=== PATIENT | female | born 1970 | race Caucasian/White ===

== ENCOUNTER → 2018-06-11 | Outpatient (CLI) | payer OTHER ==
[~2018-06-11] MED LIST: ALBU90OI6; CEPH500 PO; Diflucan100 MG PO; INSULANPEN SC; Novolin R100 UNIT/M IM; PROBIOTIC1 EAC1; REGULAR INSULIN; Zofran Odt4 MG SL
== END | disposition home or self-care (01) ==
LOC: LAB SHORT 17:49 → LAB 17:49
DX: L03.115 Cellulitis of right lower limb (principal); L97.512 Non-pressure chronic ulcer of other part of right foot with fat layer exposed
CPT/HCPCS: 87070; 87147; 87205

== ENCOUNTER → 2018-08-21 | Outpatient (CLI) | payer OTHER | END | disposition home or self-care (01) | LOC: LAB 18:03 → LAB SHORT 18:03 | DX: L02.611 Cutaneous abscess of right foot (principal) | CPT/HCPCS: 87070; 87077; 87147; 87186; 87205 ==

== ENCOUNTER → 2018-09-19 | Outpatient (CLI) | payer OTHER ==
[~2018-09-19] MED LIST changes: +BASAGLAR K100 UNIT/1 SC; +LEVO-T50 MCG PO; +NOVOLOG FL100 UNIT/1 SC
[2018-09-19 18:30] LABS: BASOPHILS ABSOLUTE AUTO 0.07 K/mm3 (0.00-0.23); BASOPHILS PERCENT AUTO 1 % (0-2); EOSINOPHILS ABSOLUTE AUTO 0.28 K/mm3 (0.00-0.68); EOSINOPHILS PERCENT AUTO 3 % (0-6); Hematocrit 39.8 % (33.0-51.0); Hemoglobin 13.8 g/dL (11.5-16.0); IMMATURE GRAN ABSOLUTE AUTO 0.02 K/mm3 (0.00-0.10); IMMATURE GRAN PERCENT AUTO 0 % (0-1); LYMPHOCYTES ABSOLUTE AUTO 3.96 K/mm3 (0.84-5.20); LYMPHOCYTES PERCENT AUTO 45 % (21-46); MONOCYTES ABSOLUTE AUTO 0.72 K/mm3 (0.16-1.47); MONOCYTES PERCENT AUTO 8 % (4-13); Mean Corpuscular HGB 31.2 pg (26.0-34.0); Mean Corpuscular HGB Conc 34.7 g/dL (31.5-36.5); Mean Corpuscular Volume 90 fL (80-100); NEUTROPHILS ABSOLUTE AUTO 3.79 K/mm3 (1.96-9.15); NEUTROPHILS PERCENT AUTO 43 % (41-73); Platelet Count 160 K/mm3 (150-400); RDW Coefficient Variation 11.9 % (11.7-14.2); RDW Standard Deviation 39.3 fL (35.1-46.3); Red Blood Cell Count 4.42 M/mm3 (3.80-5.20); White Blood Cell Count 8.84 K/mm3 (4.00-11.30)
== END | disposition home or self-care (01) ==
LOC: LAB EV 17:52 → LAB SHORT 17:52 → LAB 17:52
PROVIDERS: Podiatrist
DX: L03.115 Cellulitis of right lower limb (principal); E11.621 Type 2 diabetes mellitus with foot ulcer
CPT/HCPCS: 36415; 85025; 85651; 87071; 87075; 87147; 87205

== ENCOUNTER 2018-09-20 12:06 | Day surgery (SDC) | payer OTHER ==
[~2018-09-20 12:06] MED LIST changes: -BASAGLAR K100 UNIT/1 SC; -LEVO-T50 MCG PO; -NOVOLOG FL100 UNIT/1 SC
[2018-09-20 16:34] LABS: BASOPHILS ABSOLUTE AUTO 0.08 K/mm3 (0.00-0.23); BASOPHILS PERCENT AUTO 1 % (0-2); EOSINOPHILS ABSOLUTE AUTO 0.16 K/mm3 (0.00-0.68); EOSINOPHILS PERCENT AUTO 2 % (0-6); Hematocrit 41.4 % (33.0-51.0); Hemoglobin 13.9 g/dL (11.5-16.0); IMMATURE GRAN ABSOLUTE AUTO 0.03 K/mm3 (0.00-0.10); IMMATURE GRAN PERCENT AUTO 0 % (0-1); LYMPHOCYTES ABSOLUTE AUTO 3.41 K/mm3 (0.84-5.20); LYMPHOCYTES PERCENT AUTO 34 % (21-46); MONOCYTES PERCENT AUTO 10 % (4-13); Mean Corpuscular HGB 31.1 pg (26.0-34.0); Mean Corpuscular HGB Conc 33.6 g/dL (31.5-36.5); NEUTROPHILS PERCENT AUTO 54 % (41-73); Platelet Count 179 K/mm3 (150-400); RDW Coefficient Variation 11.9 % (11.7-14.2); RDW Standard Deviation 40.5 fL (35.1-46.3); Red Blood Cell Count 4.47 M/mm3 (3.80-5.20); White Blood Cell Count 10.08 K/mm3 (4.00-11.30)
[2018-09-20 16:38] LABS: Mean Corpuscular Volume 93 fL (80-100)
[2018-09-20 16:54] LABS: Cholesterol 146 mg/dL (50-200); HDL Cholesterol 74 mg/dL (>39); LDL/HDL RATIO 0.7; Low Density Lipoprotein Chol 54 mg/dL (0-110); Triglycerides 89 mg/dL (30-160); Very Low Density Lipoprot Chol 17 mg/dL (6-32)
[2018-09-20 16:57] LABS: Alanine Aminotransfer (ALT/SGP 93 U/L (12-78); Albumin, Blood 3.2 g/dL (3.4-5.0); Albumin/Globulin Ratio 0.7 (0.8-1.8); Alk Phos 154 U/L (50-136); Anion Gap 8 mmol/L (6-16); Aspartate Aminotrans (AST/SGOT 90 U/L (12-37); Bilirubin, Total 0.8 mg/dL (0.1-1.0); Blood Urea Nitrogen 12 mg/dL (8-24); Bun/Creatinine Ratio 17.8 (12.0-20.0); CO2, Blood 27 mmol/L (21-32); Calcium, Blood 8.9 mg/dL (8.5-10.1); Chloride, Blood 102 mmol/L (98-108); Creatinine, Blood 0.67 mg/dL (0.40-1.00); Globulin, Blood 4.7 g/dL (2.2-4.0); Glomerular Filtration Rate >60 (60-); Glucose, Blood 189 mg/dL (70-99); Potassium, Blood 3.8 mmol/L (3.5-5.5); Sodium, Blood 137 mmol/L (136-145); Total Protein, Blood 7.9 g/dL (6.4-8.2)
[2018-09-20] MEDS ORDERED: NOVOLOG FL100 UNIT/1 SC (18:28)
[2018-09-20] MEDS ORDERED: BASAGLAR K100 UNIT/1 SC (18:32)
[2018-09-20] MEDS ORDERED: LEVO-T50 MCG PO (18:33)
== END 2018-09-20 16:00 | disposition home or self-care (01) ==
LOC: ATC 12:06
PROVIDERS: Family Medicine
DX: L03.115 Cellulitis of right lower limb (principal); E11.69 Type 2 diabetes mellitus with other specified complication; M86.271 Subacute osteomyelitis, right ankle and foot; E11.621 Type 2 diabetes mellitus with foot ulcer; L97.519 Non-pressure chronic ulcer of other part of right foot with unspecified severity; L97.429 Non-pressure chronic ulcer of left heel and midfoot with unspecified severity; E11.42 Type 2 diabetes mellitus with diabetic polyneuropathy; E03.9 Hypothyroidism, unspecified; F17.210 Nicotine dependence, cigarettes, uncomplicated; Z79.899 Other long term (current) drug therapy; Z79.4 Long term (current) use of insulin; Z88.8 Allergy status to other drugs, medicaments and biological substances; Z91.018 Allergy to other foods
CPT/HCPCS: 80053; 80061; 84443; 85025; 96365; J0696

== ENCOUNTER 2018-09-25 00:32 | Day surgery (SDC) | payer OTHER ==
[~2018-09-25 00:32] MED LIST changes: +BASAGLAR K100 UNIT/1 SC; +LEVO-T50 MCG PO; +NOVOLOG FL100 UNIT/1 SC
== END 2018-09-25 11:45 | disposition home or self-care (01) ==
LOC: ATC 00:32
DX: L03.115 Cellulitis of right lower limb (principal); E11.69 Type 2 diabetes mellitus with other specified complication; M86.271 Subacute osteomyelitis, right ankle and foot; E11.621 Type 2 diabetes mellitus with foot ulcer; L97.519 Non-pressure chronic ulcer of other part of right foot with unspecified severity; L97.429 Non-pressure chronic ulcer of left heel and midfoot with unspecified severity; E11.42 Type 2 diabetes mellitus with diabetic polyneuropathy; E03.9 Hypothyroidism, unspecified; F17.210 Nicotine dependence, cigarettes, uncomplicated; Z79.899 Other long term (current) drug therapy; Z79.4 Long term (current) use of insulin; Z88.8 Allergy status to other drugs, medicaments and biological substances; Z91.018 Allergy to other foods
CPT/HCPCS: 96365; J0696

== ENCOUNTER 2018-10-31 17:42 | Emergency (ER) | payer OTHER ==
[~2018-10-31] VITALS: Ht 160 cm; Wt 77.1 kg
[~2018-10-31 17:42] MED LIST changes: +AMOX875 PO
== END 2018-10-31 19:35 | disposition left against medical advice (07) ==
LOC: ER 17:42
DX: Z53.21 Procedure and treatment not carried out due to patient leaving prior to being seen by health care provider (principal)

== ENCOUNTER 2018-11-03 14:35 | Day surgery (SDC) | payer OTHER | END 2018-11-03 15:14 | disposition home or self-care (01) | LOC: ATC 14:35 | DX: E11.621 Type 2 diabetes mellitus with foot ulcer (principal); E11.622 Type 2 diabetes mellitus with other skin ulcer; L97.422 Non-pressure chronic ulcer of left heel and midfoot with fat layer exposed; L97.512 Non-pressure chronic ulcer of other part of right foot with fat layer exposed; L03.115 Cellulitis of right lower limb; E11.42 Type 2 diabetes mellitus with diabetic polyneuropathy; E03.9 Hypothyroidism, unspecified; F17.210 Nicotine dependence, cigarettes, uncomplicated; Z79.899 Other long term (current) drug therapy; Z79.4 Long term (current) use of insulin; Z88.8 Allergy status to other drugs, medicaments and biological substances; Z91.018 Allergy to other foods | CPT/HCPCS: 96365; J0878 ==

== ENCOUNTER 2018-11-04 14:34 | Day surgery (SDC) | payer OTHER | END 2018-11-04 15:12 | disposition home or self-care (01) | LOC: ATC 14:34 | DX: E11.621 Type 2 diabetes mellitus with foot ulcer (principal); L97.422 Non-pressure chronic ulcer of left heel and midfoot with fat layer exposed; L97.512 Non-pressure chronic ulcer of other part of right foot with fat layer exposed; L03.115 Cellulitis of right lower limb; E11.42 Type 2 diabetes mellitus with diabetic polyneuropathy; F17.210 Nicotine dependence, cigarettes, uncomplicated; Z88.8 Allergy status to other drugs, medicaments and biological substances; Z91.040 Latex allergy status | CPT/HCPCS: 96365; J0878 ==

== ENCOUNTER 2018-11-15 15:20 | Observation (INO) | payer OTHER ==
[~2018-11-15] VITALS: Ht 160 cm; Wt 73.0 kg
[2018-11-15 16:35] LABS: BASOPHILS ABSOLUTE AUTO 0.08 K/mm3 (0.00-0.23); BASOPHILS PERCENT AUTO 1 % (0-2); EOSINOPHILS ABSOLUTE AUTO 0.14 K/mm3 (0.00-0.68); EOSINOPHILS PERCENT AUTO 1 % (0-6); Hematocrit 37.4 % (33.0-51.0); Hemoglobin 13.1 g/dL (11.5-16.0); IMMATURE GRAN ABSOLUTE AUTO 0.05 K/mm3 (0.00-0.10); IMMATURE GRAN PERCENT AUTO 0 % (0-1); LYMPHOCYTES ABSOLUTE AUTO 1.87 K/mm3 (0.84-5.20); LYMPHOCYTES PERCENT AUTO 16 % (21-46); MONOCYTES ABSOLUTE AUTO 0.91 K/mm3 (0.16-1.47); MONOCYTES PERCENT AUTO 8 % (4-13); Mean Corpuscular HGB 31.7 pg (26.0-34.0); Mean Corpuscular Volume 91 fL (80-100); Mean Platelet Volume 10.9 fL (9.1-12.4); NEUTROPHILS ABSOLUTE AUTO 8.65 K/mm3 (1.96-9.15); NEUTROPHILS PERCENT AUTO 74 % (41-73); Platelet Count 192 K/mm3 (150-400); RDW Coefficient Variation 11.9 % (11.7-14.2); RDW Standard Deviation 39.3 fL (35.1-46.3); Red Blood Cell Count 4.13 M/mm3 (3.80-5.20)
[2018-11-15 17:00] LABS: Alanine Aminotransfer (ALT/SGP 86 U/L (12-78); Albumin, Blood 3.3 g/dL (3.4-5.0); Albumin/Globulin Ratio 0.7 (0.8-1.8); Alk Phos 142 U/L (50-136); Anion Gap 7 mmol/L (6-16); Aspartate Aminotrans (AST/SGOT 94 U/L (12-37); Bilirubin, Total 3.5 mg/dL (0.1-1.0); Blood Urea Nitrogen 18 mg/dL (8-24); Bun/Creatinine Ratio 20.2 (12.0-20.0); CO2, Blood 27 mmol/L (21-32); Calcium, Blood 9.5 mg/dL (8.5-10.1); Chloride, Blood 97 mmol/L (98-108); Creatinine, Blood 0.89 mg/dL (0.40-1.00); Glomerular Filtration Rate >60 (60-); Glucose, Blood 175 mg/dL (70-99); Potassium, Blood 4.1 mmol/L (3.5-5.5); Sodium, Blood 131 mmol/L (136-145); Total Protein, Blood 8.3 g/dL (6.4-8.2)
[2018-11-15] MEDS ORDERED: LEVSOD50 PO (21:41)
--- NOTE | 2018-11-15 23:55 | NUR ---
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 PT HAS FAILED OUTPT TREATMENT. PT CURRENTLY WITH 2 DM ULCERS ON ELVIA FEET. BASE OF RIGHT GREAT TOE AND HEEL OF LEFT FOOT. PHOTOS HAVE BEEN TAKEN. PLAN FOR OR TOMORROW FOR RIGHT GREAT TOE AMPUTATION. PT DENIES ANY SIG PAIN. ONLY C/O DIARRHEA. HAS ALREADY HAD 3 EPISODES SINCE ARRIVAL TO ROOM. PLACED CALL TO DR. LEON AND WILL COLLECT SAMPLE FOR R/O CDIFF. PT HAS BEEN ON ORAL ABX FOR PAST 2 WEEKS. BUT ALSO STATES HX OF CELIAC WITH DIARRHEA. WILL SPEAK WITH DR. LEON RE PLAN.
--- NOTE | 2018-11-16 00:29 | NUR ---
SPOKE WITH DR. LEON. STOOL SAMPLE COLLECTED AND SENT FOR R/O CDIFF. ALSO WOUND CARED DONE. BOTH ULCERS CLEANED, APPLIED HYDROGEL, COVERED WITH GAUZE AND SECURED WITH BRYANT WRAP. ELEVATED EXTREM. NO C/O CALL LIGHT IN REACH.
[2018-11-16 04:44] LABS: Alanine Aminotransfer (ALT/SGP 65 U/L (12-78); Albumin, Blood 2.5 g/dL (3.4-5.0); Albumin/Globulin Ratio 0.6 (0.8-1.8); Alk Phos 125 U/L (50-136); Anion Gap 8 mmol/L (6-16); Aspartate Aminotrans (AST/SGOT 79 U/L (12-37); Blood Urea Nitrogen 17 mg/dL (8-24); Bun/Creatinine Ratio 20.7 (12.0-20.0); CO2, Blood 24 mmol/L (21-32); Calcium, Blood 8.2 mg/dL (8.5-10.1); Chloride, Blood 101 mmol/L (98-108); Creatinine, Blood 0.82 mg/dL (0.40-1.00); Globulin, Blood 4.1 g/dL (2.2-4.0); Glomerular Filtration Rate >60 (60-); Glucose, Blood 270 mg/dL (70-99); Potassium, Blood 3.8 mmol/L (3.5-5.5); Sodium, Blood 133 mmol/L (136-145); Total Protein, Blood 6.6 g/dL (6.4-8.2)
[2018-11-16 04:57] LABS: Hematocrit 35.4 % (33.0-51.0); Hemoglobin 12.2 g/dL (11.5-16.0); Mean Corpuscular HGB 31.6 pg (26.0-34.0); Mean Corpuscular HGB Conc 34.5 g/dL (31.5-36.5); Mean Corpuscular Volume 92 fL (80-100); Mean Platelet Volume 11.1 fL (9.1-12.4); Platelet Count 156 K/mm3 (150-400); RDW Standard Deviation 40.3 fL (35.1-46.3); Red Blood Cell Count 3.86 M/mm3 (3.80-5.20); White Blood Cell Count 6.25 K/mm3 (4.00-11.30)
--- NOTE | 2018-11-16 07:00 | NUR ---
REPORT FROM NUSRAT SPEAR. ASSUMED PT CARE.
--- NOTE | 2018-11-16 07:00 | NUR ---
REPORT FROM JOY Cueto RN. ASSUMED PT CARE.
--- NOTE | 2018-11-16 07:40 | NUR ---
STAFF TO ROOM FOR VS. PT DENIES NEEDS.
--- NOTE | 2018-11-16 07:40 | NUR ---
PT SLEEPING, NADN. FAMILY AT BEDSIDE SLEEPING IN CHAIR.
--- NOTE | 2018-11-16 08:15 | NUR ---
PT RESTING. WAKES TO TOUCH AND VERBAL STIMULI. ASSESSMENT CHARTED. PT DENIES NEEDS.
--- NOTE | 2018-11-16 08:45 | NUR ---
DR SANTOYO TO ROOM FOR EVAL AND ASSESSMENT. PLAN FOR PT TO GO TO OR TODAY FOR POSS AMP TOE. WOUNDS TO BILAT FEET DRESSED LOOSELY WITH JIHANAZNory.
--- NOTE | 2018-11-16 11:19 | NUR ---
PT IN NO DISTRESS. DENIES NEEDS. WILL CONT TO MONITOR.
--- NOTE | 2018-11-16 11:50 | NUR ---
PT MEDICATED WITH INSULIN PER ORDERS. PT ON AND OFF PHONE TALKING WITH FAMILY. DENIES PAIN.
--- NOTE | 2018-11-16 12:49 | NUR ---
PT TO SURGICENTER VIA WC.
--- NOTE | 2018-11-16 13:06 | NUR ---
11/16/18 1306 Alma Delia Hill IV IN WAS ACCESSED, FLUSHED WITH 5ML OF LR AND ATTACHED TO LR SEE MED/IO SCREEN.
--- NOTE | 2018-11-16 15:25 | NUR ---
PT RETURNED TO ROOM. ALERT AND ORIENTED. PT C/O PAIN 12/12. POST OP DRESSING TO RIGHT FOOT, POST OP SHOE TO FOOT, PT TO BE NON WEIGHT BEARING.
--- NOTE | 2018-11-16 15:37 | NUR ---
PER DR ROSALES: ICE FOR 20 MIN EVERY HR WHILE AWAKE. ELEVATE EXT FOR NEXT 48HRS. KEEP DRESSING DRY AND INTACT UNTIL F/U APPT.
--- NOTE | 2018-11-16 15:40 | NUR ---
11/16/18 1540 Rupinder More LATE ENTRY: PT INTO STEP DOWN @ 1434, RECEIVED REPORT FROM DR. HOUSTON, ANESTHESIOLOGIST & MARCELLUS, RN. PT LS CLEAR TO AUSCULTATION, VSS., PT REPORTING TOLERABLE LEVEL OF PAIN AT 7/10. PT A&O. CBG, 239 POST OP. OPERITIVE SITE C/D/I. MOM AT BEDSIDE. PT TOLERATING ORAL INTAKE. ICE & ELEVATION TO OPERATIVE SITE. DENTURES RETURNED TO PT. 1530 PT TRANSFERED BACK TO SURGICAL FLOOR. REPORT GIVEN TO BEATRIS BRADFORD. ADVISED OF NWB STATUS, ICE TO OPERATIVE SITE 30/HR WHILE AWAKE X2 DAYS, KEEP DRESSING DRY/INTAKE UNTIL F/U APPT PER DR. ROSALES POST OP ORDERS. BEATRIS BRADFORD & PT STATE NO QUESTIONS OR CONCERNS AT THIS TIME.
--- NOTE | 2018-11-16 16:48 | NUR ---
FAMILY IN AND OUT OF ROOM. VSS.
--- NOTE | 2018-11-16 18:30 | NUR ---
ASSISTED PT TO RESTROOM. PT ATE REG DINNER FROM FAMILY.
[2018-11-16 22:50] LABS: Glucose, Blood 640 mg/dL (70-99)
[2018-11-17 04:37] LABS: Alanine Aminotransfer (ALT/SGP 66 U/L (12-78); Albumin, Blood 2.6 g/dL (3.4-5.0); Albumin/Globulin Ratio 0.6 (0.8-1.8); Alk Phos 158 U/L (50-136); Anion Gap 7 mmol/L (6-16); Aspartate Aminotrans (AST/SGOT 73 U/L (12-37); Bilirubin, Total 1.3 mg/dL (0.1-1.0); Blood Urea Nitrogen 17 mg/dL (8-24); Bun/Creatinine Ratio 18.8 (12.0-20.0); CO2, Blood 27 mmol/L (21-32); Calcium, Blood 8.4 mg/dL (8.5-10.1); Chloride, Blood 103 mmol/L (98-108); Globulin, Blood 4.6 g/dL (2.2-4.0); Glomerular Filtration Rate >60 (60-); Glucose, Blood 201 mg/dL (70-99); Potassium, Blood 4.5 mmol/L (3.5-5.5); Sodium, Blood 137 mmol/L (136-145); Total Protein, Blood 7.2 g/dL (6.4-8.2)
--- NOTE | 2018-11-17 07:32 | NUR ---
SUMMARY POD #1 RIGHT GREAT TOE AMPUTATION DRSG REMAINS C/D/I. CO ENC TO KEEP FOOT ELEVATED ON PILLOWS. PT ENC TO CALL FOR ASSISTANCE TO THE RESTROOM. FREQUENTLY REMINDERS OF NWB STATUS TO RIGHT FOOT. EXUDRY/BRYANT WRAP APPLIED TO ULCER ON LEFT HEEL. PAIN MEDICATED X1. GLUCOSE LEVEL OF 640 OBTAINED, HOSPITALIST WAS NOTIFIED, ADDITIONAL INSULIN WAS ORDERED AND GIVEN, GLUCOSE RECHECKED ACCORDING TO VERBAL ORDERS. PT REMAINED ASYMPTOMATIC. DIET EDUCATION PROVIDED. PT HAD BEEN EATING "KETTLE CORN" & DRINKING "SPRITE". REPORT GIVEN TO DAY RN. CALL LIGHT IN REACH
[2018-11-17] MEDS ORDERED: Bactrim Ds Tab1 EACH PO (11:41)
--- NOTE | 2018-11-17 13:50 | NUR ---
D/C'D HOME, DC INSTRUCTIONS GIVEN, VERBALIZED UNDERSTANDING, L HEEL DRESSING CHANGED, 4X4 GAUZE APPLIED, SECURED WITH BRYANT WRAP, DSG SUPPLIES SENT W/ PT.
== END 2018-11-17 13:50 | disposition home or self-care (01) ==
LOC: ER 15:20 → SURS 15:21 → ER 21:32 → SURS 21:32
PROVIDERS: Internal Medicine; Physician Assistant; Podiatrist Foot & Ankle Surgery; ADMIT Internal Medicine
PROC: 0Y6M0Z9 Detachment at Right Foot, Partial 1st Ray, Open Approach (ICD-10-PCS; principal; 2018-11-16 14:00)
DX: E11.69 Type 2 diabetes mellitus with other specified complication (principal); M86.171 Other acute osteomyelitis, right ankle and foot; E11.621 Type 2 diabetes mellitus with foot ulcer; L97.519 Non-pressure chronic ulcer of other part of right foot with unspecified severity; R79.89 Other specified abnormal findings of blood chemistry
CPT/HCPCS: 36415; 73620; 73630; 76705; 80053; 82947; 83605; 85025; 85027; 87040; 87070; 87075; 87077; 87186; 87205; 87493; 88305; 88311; 96372; 96374; 99285-25; G0378; J1100; J1650; J1885; J2250; J2405; J2704; J3010; J7030; J7120

== ENCOUNTER 2019-01-14 00:19 | Day surgery (SDC) | payer OTHER ==
[~2019-01-14 00:19] MED LIST changes: +Bactrim Ds Tab1 EACH PO; +LEVSOD50 PO
== END 2019-01-14 22:48 | disposition home or self-care (01) ==
LOC: WOUND 00:19
DX: E11.621 Type 2 diabetes mellitus with foot ulcer (principal); L97.521 Non-pressure chronic ulcer of other part of left foot limited to breakdown of skin; E03.9 Hypothyroidism, unspecified; E11.42 Type 2 diabetes mellitus with diabetic polyneuropathy
CPT/HCPCS: G0463

== ENCOUNTER → 2019-01-16 | Outpatient (CLI) | payer OTHER ==
[2019-01-18 14:07] LABS: HPV 16 Negative (Negative); HPV 18 Negative (Negative); HPV OTHER HR TYPES Negative (Negative)
== END ==
LOC: LAB 19:15 → LAB SHORT 19:15
PROVIDERS: Family Medicine
DX: Z01.419 Encounter for gynecological examination (general) (routine) without abnormal findings (principal)
CPT/HCPCS: 87624; G0123

== ENCOUNTER 2019-01-28 00:24 | Day surgery (SDC) | payer OTHER | END 2019-01-28 22:47 | disposition home or self-care (01) | LOC: WOUND 00:24 | DX: E11.621 Type 2 diabetes mellitus with foot ulcer (principal); L97.521 Non-pressure chronic ulcer of other part of left foot limited to breakdown of skin; E11.42 Type 2 diabetes mellitus with diabetic polyneuropathy; Z89.411 Acquired absence of right great toe ==

== ENCOUNTER 2019-02-21 00:44 | Day surgery (SDC) | payer OTHER | END 2019-02-21 23:07 | disposition home or self-care (01) | LOC: WOUND 00:44 | DX: E11.621 Type 2 diabetes mellitus with foot ulcer (principal); L97.521 Non-pressure chronic ulcer of other part of left foot limited to breakdown of skin; E11.42 Type 2 diabetes mellitus with diabetic polyneuropathy; Z89.431 Acquired absence of right foot | CPT/HCPCS: G0463 ==

== ENCOUNTER 2019-08-16 02:53 | Day surgery (SDC) | payer OTHER | END 2019-08-16 23:10 | disposition home or self-care (01) | LOC: WOUND 02:53 | DX: E11.621 Type 2 diabetes mellitus with foot ulcer (principal); L97.512 Non-pressure chronic ulcer of other part of right foot with fat layer exposed; E11.622 Type 2 diabetes mellitus with other skin ulcer; L97.819 Non-pressure chronic ulcer of other part of right lower leg with unspecified severity; E11.59 Type 2 diabetes mellitus with other circulatory complications; E11.42 Type 2 diabetes mellitus with diabetic polyneuropathy; E03.9 Hypothyroidism, unspecified; F42.9 Obsessive-compulsive disorder, unspecified; Z88.8 Allergy status to other drugs, medicaments and biological substances; Z91.040 Latex allergy status; Z87.891 Personal history of nicotine dependence | CPT/HCPCS: G0463 ==

== ENCOUNTER 2019-08-23 00:19 | Day surgery (SDC) | payer OTHER | END 2019-08-23 23:09 | disposition home or self-care (01) | LOC: WOUND 00:19 | DX: E11.621 Type 2 diabetes mellitus with foot ulcer (principal); E11.59 Type 2 diabetes mellitus with other circulatory complications; L97.819 Non-pressure chronic ulcer of other part of right lower leg with unspecified severity; E11.42 Type 2 diabetes mellitus with diabetic polyneuropathy; E03.9 Hypothyroidism, unspecified; Z87.891 Personal history of nicotine dependence; Z79.4 Long term (current) use of insulin | CPT/HCPCS: 87071; 87075; 87077; 87186; 87205 ==

== ENCOUNTER 2019-08-26 01:30 | Day surgery (SDC) | payer OTHER | END 2019-08-26 22:38 | disposition home or self-care (01) | LOC: WOUND 01:30 | DX: E11.621 Type 2 diabetes mellitus with foot ulcer (principal); E11.42 Type 2 diabetes mellitus with diabetic polyneuropathy; E11.59 Type 2 diabetes mellitus with other circulatory complications; L97.812 Non-pressure chronic ulcer of other part of right lower leg with fat layer exposed; E03.9 Hypothyroidism, unspecified; Z87.891 Personal history of nicotine dependence; Z79.4 Long term (current) use of insulin; Z79.899 Other long term (current) drug therapy ==

== ENCOUNTER 2019-08-30 00:37 | Day surgery (SDC) | payer OTHER | END 2019-08-30 22:40 | disposition home or self-care (01) | LOC: WOUND 00:37 | DX: S91.301D Unspecified open wound, right foot, subsequent encounter (principal); S81.801D Unspecified open wound, right lower leg, subsequent encounter ==

== ENCOUNTER 2019-09-02 00:43 | Day surgery (SDC) | payer OTHER | END 2019-09-02 22:39 | disposition home or self-care (01) | LOC: WOUND 00:43 | DX: E11.622 Type 2 diabetes mellitus with other skin ulcer (principal); E11.621 Type 2 diabetes mellitus with foot ulcer; E11.59 Type 2 diabetes mellitus with other circulatory complications; E03.9 Hypothyroidism, unspecified; E11.42 Type 2 diabetes mellitus with diabetic polyneuropathy; L97.415 Non-pressure chronic ulcer of right heel and midfoot with muscle involvement without evidence of necrosis; L97.812 Non-pressure chronic ulcer of other part of right lower leg with fat layer exposed; Z87.891 Personal history of nicotine dependence; Z79.4 Long term (current) use of insulin; Z79.899 Other long term (current) drug therapy ==

== ENCOUNTER 2019-09-09 00:14 | Day surgery (SDC) | payer OTHER | END 2019-09-09 23:08 | disposition home or self-care (01) | LOC: WOUND 00:14 | DX: E11.621 Type 2 diabetes mellitus with foot ulcer (principal); E11.622 Type 2 diabetes mellitus with other skin ulcer; L97.812 Non-pressure chronic ulcer of other part of right lower leg with fat layer exposed; L97.512 Non-pressure chronic ulcer of other part of right foot with fat layer exposed ==

== ENCOUNTER 2019-09-11 01:50 | Day surgery (SDC) | payer OTHER | END 2019-09-11 22:48 | disposition home or self-care (01) | LOC: WOUND 01:50 | DX: E11.621 Type 2 diabetes mellitus with foot ulcer (principal); L97.819 Non-pressure chronic ulcer of other part of right lower leg with unspecified severity; E11.59 Type 2 diabetes mellitus with other circulatory complications; Z79.4 Long term (current) use of insulin ==

== ENCOUNTER 2019-09-13 00:08 | Day surgery (SDC) | payer OTHER | END 2019-09-13 22:37 | disposition home or self-care (01) | LOC: WOUND 00:08 | DX: E11.621 Type 2 diabetes mellitus with foot ulcer (principal); L97.819 Non-pressure chronic ulcer of other part of right lower leg with unspecified severity; R60.9 Edema, unspecified; E11.59 Type 2 diabetes mellitus with other circulatory complications ==

== ENCOUNTER 2019-09-16 01:15 | Day surgery (SDC) | payer OTHER | END 2019-09-16 22:53 | disposition home or self-care (01) | LOC: WOUND 01:15 | DX: E11.621 Type 2 diabetes mellitus with foot ulcer (principal); E11.42 Type 2 diabetes mellitus with diabetic polyneuropathy; I87.2 Venous insufficiency (chronic) (peripheral); E11.59 Type 2 diabetes mellitus with other circulatory complications; E03.9 Hypothyroidism, unspecified; Z87.891 Personal history of nicotine dependence; L97.415 Non-pressure chronic ulcer of right heel and midfoot with muscle involvement without evidence of necrosis; Z79.4 Long term (current) use of insulin; Z79.899 Other long term (current) drug therapy ==

== ENCOUNTER 2019-09-18 00:23 | Day surgery (SDC) | payer OTHER | END 2019-09-18 22:39 | disposition home or self-care (01) | LOC: WOUND 00:23 | DX: E11.621 Type 2 diabetes mellitus with foot ulcer (principal); E11.59 Type 2 diabetes mellitus with other circulatory complications; L97.819 Non-pressure chronic ulcer of other part of right lower leg with unspecified severity; Z79.4 Long term (current) use of insulin ==

== ENCOUNTER 2019-09-20 00:10 | Day surgery (SDC) | payer OTHER | END 2019-09-20 22:59 | disposition home or self-care (01) | LOC: WOUND 00:10 | DX: E11.621 Type 2 diabetes mellitus with foot ulcer (principal); E11.59 Type 2 diabetes mellitus with other circulatory complications; L97.819 Non-pressure chronic ulcer of other part of right lower leg with unspecified severity; Z79.4 Long term (current) use of insulin ==

== ENCOUNTER 2019-09-23 00:10 | Day surgery (SDC) | payer OTHER | END 2019-09-23 22:48 | disposition home or self-care (01) | LOC: WOUND 00:10 | DX: E11.621 Type 2 diabetes mellitus with foot ulcer (principal); L97.515 Non-pressure chronic ulcer of other part of right foot with muscle involvement without evidence of necrosis; E11.622 Type 2 diabetes mellitus with other skin ulcer; L97.812 Non-pressure chronic ulcer of other part of right lower leg with fat layer exposed; E11.59 Type 2 diabetes mellitus with other circulatory complications; Z79.4 Long term (current) use of insulin; Z79.899 Other long term (current) drug therapy | CPT/HCPCS: 87081 ==

== ENCOUNTER 2019-09-24 15:27 | Day surgery (SDC) | payer OTHER | END 2019-09-24 22:51 | disposition home or self-care (01) | LOC: WOUND 15:27 | DX: E11.621 Type 2 diabetes mellitus with foot ulcer (principal); L97.519 Non-pressure chronic ulcer of other part of right foot with unspecified severity; E11.622 Type 2 diabetes mellitus with other skin ulcer; L97.819 Non-pressure chronic ulcer of other part of right lower leg with unspecified severity; E11.59 Type 2 diabetes mellitus with other circulatory complications; R60.9 Edema, unspecified ==

== ENCOUNTER 2019-09-30 00:09 | Day surgery (SDC) | payer OTHER | END 2019-09-30 22:57 | disposition home or self-care (01) | LOC: WOUND 00:09 | DX: E11.621 Type 2 diabetes mellitus with foot ulcer (principal); E11.622 Type 2 diabetes mellitus with other skin ulcer; L97.512 Non-pressure chronic ulcer of other part of right foot with fat layer exposed; L97.812 Non-pressure chronic ulcer of other part of right lower leg with fat layer exposed; E11.42 Type 2 diabetes mellitus with diabetic polyneuropathy; Z87.891 Personal history of nicotine dependence ==

== ENCOUNTER 2019-10-07 00:30 | Day surgery (SDC) | payer OTHER | END 2019-10-07 22:44 | disposition home or self-care (01) | LOC: WOUND 00:30 | DX: E11.622 Type 2 diabetes mellitus with other skin ulcer (principal); E11.59 Type 2 diabetes mellitus with other circulatory complications; L97.819 Non-pressure chronic ulcer of other part of right lower leg with unspecified severity; Z79.4 Long term (current) use of insulin ==

== ENCOUNTER 2019-10-14 00:24 | Day surgery (SDC) | payer OTHER | END 2019-10-14 22:46 | disposition home or self-care (01) | LOC: WOUND 00:24 | DX: E11.621 Type 2 diabetes mellitus with foot ulcer (principal); L97.412 Non-pressure chronic ulcer of right heel and midfoot with fat layer exposed; E11.622 Type 2 diabetes mellitus with other skin ulcer; L97.812 Non-pressure chronic ulcer of other part of right lower leg with fat layer exposed; E11.59 Type 2 diabetes mellitus with other circulatory complications ==

== ENCOUNTER 2019-10-16 10:16 | Day surgery (SDC) | payer OTHER ==
[~2019-10-16] VITALS: Ht 160 cm; Wt 93.9 kg
--- NOTE | 2019-10-16 11:20 | NUR ---
10/16/19 1120 Elvi Leon 2 IV ATTEMPT 1 RH BY ANDREW VALVE 1 IN LFA BY RN WOULD NOT THREAD 1 SUCCESSFUL IV IN LFA BY BEATRIS PT TOW
== END 2019-10-16 12:32 | disposition home or self-care (01) ==
LOC: ORSCSDS 10:16
PROVIDERS: Internal Medicine Gastroenterology
PROC: 0DB68ZX Excision of Stomach, Via Natural or Artificial Opening Endoscopic, Diagnostic (ICD-10-PCS; principal; 2019-10-16 11:30)
DX: K74.60 Unspecified cirrhosis of liver (principal); K90.0 Celiac disease; K20.9 Esophagitis, unspecified; K44.9 Diaphragmatic hernia without obstruction or gangrene; J45.909 Unspecified asthma, uncomplicated; E03.9 Hypothyroidism, unspecified; E11.9 Type 2 diabetes mellitus without complications; F17.210 Nicotine dependence, cigarettes, uncomplicated; Z79.4 Long term (current) use of insulin; E11.621 Type 2 diabetes mellitus with foot ulcer; Z79.899 Other long term (current) drug therapy
CPT/HCPCS: 82947; 88305; J2704; J7120; J7799

== ENCOUNTER 2019-10-21 00:59 | Day surgery (SDC) | payer OTHER | END 2019-10-21 22:43 | disposition home or self-care (01) | LOC: WOUND 00:59 | DX: E11.621 Type 2 diabetes mellitus with foot ulcer (principal); L97.819 Non-pressure chronic ulcer of other part of right lower leg with unspecified severity; I87.2 Venous insufficiency (chronic) (peripheral); E11.42 Type 2 diabetes mellitus with diabetic polyneuropathy; E03.9 Hypothyroidism, unspecified; E11.59 Type 2 diabetes mellitus with other circulatory complications; Z87.891 Personal history of nicotine dependence; Z79.4 Long term (current) use of insulin; Z79.899 Other long term (current) drug therapy ==

== ENCOUNTER 2019-11-04 00:30 | Day surgery (SDC) | payer OTHER | END 2019-11-04 22:57 | disposition home or self-care (01) | LOC: WOUND 00:30 | DX: E11.622 Type 2 diabetes mellitus with other skin ulcer (principal); L97.819 Non-pressure chronic ulcer of other part of right lower leg with unspecified severity; L97.821 Non-pressure chronic ulcer of other part of left lower leg limited to breakdown of skin; I87.2 Venous insufficiency (chronic) (peripheral); E11.59 Type 2 diabetes mellitus with other circulatory complications; E11.42 Type 2 diabetes mellitus with diabetic polyneuropathy; E03.9 Hypothyroidism, unspecified; Z87.891 Personal history of nicotine dependence; Z79.4 Long term (current) use of insulin; Z79.899 Other long term (current) drug therapy ==

== ENCOUNTER 2019-11-04 00:39 | Day surgery (SDC) | payer OTHER | END 2019-11-04 22:58 | disposition home or self-care (01) | LOC: HBO 00:39 | DX: E11.621 Type 2 diabetes mellitus with foot ulcer (principal); L97.819 Non-pressure chronic ulcer of other part of right lower leg with unspecified severity; I87.2 Venous insufficiency (chronic) (peripheral); E11.59 Type 2 diabetes mellitus with other circulatory complications; Z79.4 Long term (current) use of insulin | CPT/HCPCS: 82947; G0277 ==

== ENCOUNTER 2019-11-05 00:29 | Day surgery (SDC) | payer OTHER | END 2019-11-05 22:58 | disposition home or self-care (01) | LOC: HBO 00:29 | DX: E11.621 Type 2 diabetes mellitus with foot ulcer (principal); L97.819 Non-pressure chronic ulcer of other part of right lower leg with unspecified severity; L97.821 Non-pressure chronic ulcer of other part of left lower leg limited to breakdown of skin; I87.2 Venous insufficiency (chronic) (peripheral); E11.59 Type 2 diabetes mellitus with other circulatory complications; Z79.4 Long term (current) use of insulin | CPT/HCPCS: 82947; G0277 ==

== ENCOUNTER 2019-11-06 00:18 | Day surgery (SDC) | payer OTHER | END 2019-11-06 22:49 | disposition home or self-care (01) | LOC: HBO 00:18 | DX: E11.622 Type 2 diabetes mellitus with other skin ulcer (principal); L97.819 Non-pressure chronic ulcer of other part of right lower leg with unspecified severity; L97.821 Non-pressure chronic ulcer of other part of left lower leg limited to breakdown of skin; I87.2 Venous insufficiency (chronic) (peripheral); E11.59 Type 2 diabetes mellitus with other circulatory complications; Z79.4 Long term (current) use of insulin | CPT/HCPCS: 82947; G0277 ==

== ENCOUNTER 2019-11-07 00:12 | Day surgery (SDC) | payer OTHER | END 2019-11-07 23:20 | disposition home or self-care (01) | LOC: HBO 00:12 | DX: E11.621 Type 2 diabetes mellitus with foot ulcer (principal); L97.819 Non-pressure chronic ulcer of other part of right lower leg with unspecified severity; L97.821 Non-pressure chronic ulcer of other part of left lower leg limited to breakdown of skin; I87.2 Venous insufficiency (chronic) (peripheral); E11.59 Type 2 diabetes mellitus with other circulatory complications; Z79.4 Long term (current) use of insulin | CPT/HCPCS: 82947; G0277 ==

== ENCOUNTER 2019-11-08 00:41 | Day surgery (SDC) | payer OTHER | END 2019-11-08 23:23 | disposition home or self-care (01) | LOC: HBO 00:41 | DX: E11.621 Type 2 diabetes mellitus with foot ulcer (principal); L97.819 Non-pressure chronic ulcer of other part of right lower leg with unspecified severity; L97.821 Non-pressure chronic ulcer of other part of left lower leg limited to breakdown of skin; I87.2 Venous insufficiency (chronic) (peripheral); E11.59 Type 2 diabetes mellitus with other circulatory complications | CPT/HCPCS: 82947; G0277 ==

== ENCOUNTER 2019-11-08 11:41 | Day surgery (SDC) | payer OTHER | END 2019-11-08 23:24 | disposition home or self-care (01) | LOC: WOUND 11:41 | DX: E11.621 Type 2 diabetes mellitus with foot ulcer (principal); L97.519 Non-pressure chronic ulcer of other part of right foot with unspecified severity; E11.622 Type 2 diabetes mellitus with other skin ulcer; L97.919 Non-pressure chronic ulcer of unspecified part of right lower leg with unspecified severity; L97.929 Non-pressure chronic ulcer of unspecified part of left lower leg with unspecified severity ==

== ENCOUNTER 2019-11-11 00:38 | Day surgery (SDC) | payer OTHER | END 2019-11-11 23:12 | disposition home or self-care (01) | LOC: HBO 00:38 | DX: E11.621 Type 2 diabetes mellitus with foot ulcer (principal); L97.819 Non-pressure chronic ulcer of other part of right lower leg with unspecified severity; L97.821 Non-pressure chronic ulcer of other part of left lower leg limited to breakdown of skin; I87.2 Venous insufficiency (chronic) (peripheral); E11.59 Type 2 diabetes mellitus with other circulatory complications | CPT/HCPCS: 82947; G0277 ==

== ENCOUNTER 2019-11-11 00:40 | Day surgery (SDC) | payer OTHER | END 2019-11-11 23:12 | disposition home or self-care (01) | LOC: WOUND 00:40 | DX: E11.621 Type 2 diabetes mellitus with foot ulcer (principal); L97.819 Non-pressure chronic ulcer of other part of right lower leg with unspecified severity; L97.821 Non-pressure chronic ulcer of other part of left lower leg limited to breakdown of skin; I87.2 Venous insufficiency (chronic) (peripheral); E11.59 Type 2 diabetes mellitus with other circulatory complications; E03.9 Hypothyroidism, unspecified; Z87.891 Personal history of nicotine dependence; E11.42 Type 2 diabetes mellitus with diabetic polyneuropathy | CPT/HCPCS: 82947 ==

== ENCOUNTER 2019-11-12 00:11 | Day surgery (SDC) | payer OTHER | END 2019-11-12 23:03 | disposition home or self-care (01) | LOC: HBO 00:11 | DX: E11.621 Type 2 diabetes mellitus with foot ulcer (principal); L97.819 Non-pressure chronic ulcer of other part of right lower leg with unspecified severity; L97.821 Non-pressure chronic ulcer of other part of left lower leg limited to breakdown of skin; E11.59 Type 2 diabetes mellitus with other circulatory complications; I87.2 Venous insufficiency (chronic) (peripheral) | CPT/HCPCS: 82947; G0277 ==

== ENCOUNTER 2019-11-13 00:36 | Day surgery (SDC) | payer OTHER | END 2019-11-13 23:14 | disposition home or self-care (01) | LOC: HBO 00:36 | DX: E11.621 Type 2 diabetes mellitus with foot ulcer (principal); L97.819 Non-pressure chronic ulcer of other part of right lower leg with unspecified severity; L97.821 Non-pressure chronic ulcer of other part of left lower leg limited to breakdown of skin; I87.2 Venous insufficiency (chronic) (peripheral); E11.59 Type 2 diabetes mellitus with other circulatory complications | CPT/HCPCS: 82947; G0277 ==

== ENCOUNTER 2019-11-14 00:25 | Day surgery (SDC) | payer OTHER | END 2019-11-14 22:39 | disposition home or self-care (01) | LOC: HBO 00:25 | DX: E11.621 Type 2 diabetes mellitus with foot ulcer (principal); L97.819 Non-pressure chronic ulcer of other part of right lower leg with unspecified severity; L97.821 Non-pressure chronic ulcer of other part of left lower leg limited to breakdown of skin; I87.2 Venous insufficiency (chronic) (peripheral); E11.59 Type 2 diabetes mellitus with other circulatory complications; Z79.4 Long term (current) use of insulin | CPT/HCPCS: 82947; G0277 ==

== ENCOUNTER 2019-11-14 10:10 | Day surgery (SDC) | payer OTHER | END 2019-11-14 22:39 | disposition home or self-care (01) | LOC: WOUND 10:10 | DX: E11.621 Type 2 diabetes mellitus with foot ulcer (principal); L97.819 Non-pressure chronic ulcer of other part of right lower leg with unspecified severity; L97.821 Non-pressure chronic ulcer of other part of left lower leg limited to breakdown of skin; I87.2 Venous insufficiency (chronic) (peripheral); E11.59 Type 2 diabetes mellitus with other circulatory complications ==

== ENCOUNTER 2019-11-15 00:34 | Day surgery (SDC) | payer OTHER | END 2019-11-15 23:44 | disposition home or self-care (01) | LOC: HBO 00:34 | DX: E11.621 Type 2 diabetes mellitus with foot ulcer (principal); L97.819 Non-pressure chronic ulcer of other part of right lower leg with unspecified severity; L97.821 Non-pressure chronic ulcer of other part of left lower leg limited to breakdown of skin; I87.2 Venous insufficiency (chronic) (peripheral); E11.59 Type 2 diabetes mellitus with other circulatory complications; Z79.4 Long term (current) use of insulin | CPT/HCPCS: 82947; G0277 ==

== ENCOUNTER 2019-11-18 00:16 | Day surgery (SDC) | payer OTHER | END 2019-11-18 22:39 | disposition home or self-care (01) | LOC: WOUND 00:16 | DX: E11.621 Type 2 diabetes mellitus with foot ulcer (principal); I87.2 Venous insufficiency (chronic) (peripheral); E11.59 Type 2 diabetes mellitus with other circulatory complications; E11.42 Type 2 diabetes mellitus with diabetic polyneuropathy; L97.419 Non-pressure chronic ulcer of right heel and midfoot with unspecified severity; Z79.4 Long term (current) use of insulin; Z87.891 Personal history of nicotine dependence; Z79.899 Other long term (current) drug therapy ==

== ENCOUNTER 2019-11-18 00:25 | Day surgery (SDC) | payer OTHER | END 2019-11-18 22:39 | disposition home or self-care (01) | LOC: HBO 00:25 | DX: E11.621 Type 2 diabetes mellitus with foot ulcer (principal); I87.2 Venous insufficiency (chronic) (peripheral); E11.59 Type 2 diabetes mellitus with other circulatory complications; L97.509 Non-pressure chronic ulcer of other part of unspecified foot with unspecified severity; Z79.4 Long term (current) use of insulin | CPT/HCPCS: 82947; G0277 ==

== ENCOUNTER 2019-11-19 00:23 | Day surgery (SDC) | payer OTHER | END 2019-11-19 22:37 | disposition home or self-care (01) | LOC: HBO 00:23 | DX: E11.621 Type 2 diabetes mellitus with foot ulcer (principal); E11.59 Type 2 diabetes mellitus with other circulatory complications; I87.2 Venous insufficiency (chronic) (peripheral); Z79.4 Long term (current) use of insulin; L97.509 Non-pressure chronic ulcer of other part of unspecified foot with unspecified severity | CPT/HCPCS: 82947; G0277 ==

== ENCOUNTER 2019-11-20 00:10 | Day surgery (SDC) | payer OTHER | END 2019-11-20 23:01 | disposition home or self-care (01) | LOC: HBO 00:10 | DX: E11.621 Type 2 diabetes mellitus with foot ulcer (principal); L97.509 Non-pressure chronic ulcer of other part of unspecified foot with unspecified severity; I87.2 Venous insufficiency (chronic) (peripheral); E11.59 Type 2 diabetes mellitus with other circulatory complications | CPT/HCPCS: 82947; G0277 ==

== ENCOUNTER 2019-11-21 00:15 | Day surgery (SDC) | payer OTHER | END 2019-11-21 23:13 | disposition home or self-care (01) | LOC: HBO 00:15 | DX: E11.621 Type 2 diabetes mellitus with foot ulcer (principal); E11.59 Type 2 diabetes mellitus with other circulatory complications; I87.2 Venous insufficiency (chronic) (peripheral); L97.509 Non-pressure chronic ulcer of other part of unspecified foot with unspecified severity; Z79.4 Long term (current) use of insulin | CPT/HCPCS: 82947; G0277 ==

== ENCOUNTER 2019-11-22 01:30 | Day surgery (SDC) | payer OTHER | END 2019-11-22 22:43 | disposition home or self-care (01) | LOC: HBO 01:30 | DX: E11.621 Type 2 diabetes mellitus with foot ulcer (principal); E11.59 Type 2 diabetes mellitus with other circulatory complications; I87.2 Venous insufficiency (chronic) (peripheral); L97.419 Non-pressure chronic ulcer of right heel and midfoot with unspecified severity; Z79.4 Long term (current) use of insulin | CPT/HCPCS: 82947; G0277 ==

== ENCOUNTER 2019-11-25 00:28 | Day surgery (SDC) | payer OTHER | END 2019-11-25 22:39 | disposition home or self-care (01) | LOC: HBO 00:28 | DX: E11.621 Type 2 diabetes mellitus with foot ulcer (principal); E11.59 Type 2 diabetes mellitus with other circulatory complications; L97.419 Non-pressure chronic ulcer of right heel and midfoot with unspecified severity; I87.2 Venous insufficiency (chronic) (peripheral); Z79.4 Long term (current) use of insulin | CPT/HCPCS: 82947; G0277 ==

== ENCOUNTER 2019-11-25 00:31 | Day surgery (SDC) | payer OTHER | END 2019-11-25 22:40 | disposition home or self-care (01) | LOC: WOUND 00:31 | DX: E11.621 Type 2 diabetes mellitus with foot ulcer (principal); E11.59 Type 2 diabetes mellitus with other circulatory complications; I87.2 Venous insufficiency (chronic) (peripheral); L97.415 Non-pressure chronic ulcer of right heel and midfoot with muscle involvement without evidence of necrosis; Z79.4 Long term (current) use of insulin | CPT/HCPCS: 87070; 87077; 87147; 87186; 87205 ==

== ENCOUNTER 2019-11-25 13:54 | Day surgery (SDC) | payer OTHER | END 2019-11-25 22:40 | disposition home or self-care (01) | LOC: RAD 13:54 | DX: E11.621 Type 2 diabetes mellitus with foot ulcer (principal); E11.59 Type 2 diabetes mellitus with other circulatory complications; L97.419 Non-pressure chronic ulcer of right heel and midfoot with unspecified severity; I87.2 Venous insufficiency (chronic) (peripheral); Z79.4 Long term (current) use of insulin; Z79.899 Other long term (current) drug therapy | CPT/HCPCS: 73630 ==

== ENCOUNTER 2019-11-26 00:20 | Day surgery (SDC) | payer OTHER | END 2019-11-26 23:14 | disposition home or self-care (01) | LOC: HBO | DX: E11.621 Type 2 diabetes mellitus with foot ulcer (principal); I87.2 Venous insufficiency (chronic) (peripheral); E11.59 Type 2 diabetes mellitus with other circulatory complications; L97.419 Non-pressure chronic ulcer of right heel and midfoot with unspecified severity; Z79.4 Long term (current) use of insulin | CPT/HCPCS: 82947; G0277 ==

== ENCOUNTER 2019-11-29 00:21 | Day surgery (SDC) | payer OTHER | END 2019-11-29 22:56 | disposition home or self-care (01) | LOC: WOUND 00:21 | DX: E11.621 Type 2 diabetes mellitus with foot ulcer (principal); L97.516 Non-pressure chronic ulcer of other part of right foot with bone involvement without evidence of necrosis; I87.2 Venous insufficiency (chronic) (peripheral); E11.59 Type 2 diabetes mellitus with other circulatory complications; L97.819 Non-pressure chronic ulcer of other part of right lower leg with unspecified severity; L97.821 Non-pressure chronic ulcer of other part of left lower leg limited to breakdown of skin; E03.9 Hypothyroidism, unspecified; Z89.411 Acquired absence of right great toe ==

== ENCOUNTER 2019-11-29 13:00 | Day surgery (SDC) | payer OTHER | END 2019-12-02 22:45 | disposition home or self-care (01) | LOC: HBO 13:00 | DX: E11.621 Type 2 diabetes mellitus with foot ulcer (principal); I87.2 Venous insufficiency (chronic) (peripheral); E11.59 Type 2 diabetes mellitus with other circulatory complications; L97.419 Non-pressure chronic ulcer of right heel and midfoot with unspecified severity; Z79.4 Long term (current) use of insulin | CPT/HCPCS: 82947; G0277 ==

== ENCOUNTER 2019-12-02 00:14 | Day surgery (SDC) | payer OTHER | END 2019-12-02 22:45 | disposition home or self-care (01) | LOC: HBO 00:14 | DX: E11.621 Type 2 diabetes mellitus with foot ulcer (principal); I87.2 Venous insufficiency (chronic) (peripheral); E11.59 Type 2 diabetes mellitus with other circulatory complications; L97.419 Non-pressure chronic ulcer of right heel and midfoot with unspecified severity; Z79.4 Long term (current) use of insulin | CPT/HCPCS: 82947; G0277 ==

== ENCOUNTER 2019-12-02 00:18 | Day surgery (SDC) | payer OTHER | END 2019-12-02 22:45 | disposition home or self-care (01) | LOC: WOUND 00:18 | DX: E11.621 Type 2 diabetes mellitus with foot ulcer (principal); I87.2 Venous insufficiency (chronic) (peripheral); E11.59 Type 2 diabetes mellitus with other circulatory complications; L97.419 Non-pressure chronic ulcer of right heel and midfoot with unspecified severity; L97.519 Non-pressure chronic ulcer of other part of right foot with unspecified severity; Z79.4 Long term (current) use of insulin ==

== ENCOUNTER 2019-12-10 00:10 | Day surgery (SDC) | payer OTHER | END 2019-12-10 22:40 | disposition home or self-care (01) | LOC: HBO 00:10 | DX: E11.621 Type 2 diabetes mellitus with foot ulcer (principal); E11.59 Type 2 diabetes mellitus with other circulatory complications; I87.2 Venous insufficiency (chronic) (peripheral); L97.419 Non-pressure chronic ulcer of right heel and midfoot with unspecified severity; L97.519 Non-pressure chronic ulcer of other part of right foot with unspecified severity; Z79.4 Long term (current) use of insulin | CPT/HCPCS: 82947; G0277 ==

== ENCOUNTER 2019-12-30 00:45 | Day surgery (SDC) | payer OTHER | END 2019-12-30 22:55 | disposition home or self-care (01) | LOC: HBO 00:45 | DX: E11.621 Type 2 diabetes mellitus with foot ulcer (principal); I87.2 Venous insufficiency (chronic) (peripheral); E11.59 Type 2 diabetes mellitus with other circulatory complications; L97.419 Non-pressure chronic ulcer of right heel and midfoot with unspecified severity; Z79.4 Long term (current) use of insulin | CPT/HCPCS: 82947; G0277 ==

== ENCOUNTER 2019-12-31 00:18 | Day surgery (SDC) | payer OTHER | END 2019-12-31 22:45 | disposition home or self-care (01) | LOC: HBO 00:18 | DX: E11.621 Type 2 diabetes mellitus with foot ulcer (principal); I87.2 Venous insufficiency (chronic) (peripheral); E11.59 Type 2 diabetes mellitus with other circulatory complications; L97.419 Non-pressure chronic ulcer of right heel and midfoot with unspecified severity; Z79.4 Long term (current) use of insulin | CPT/HCPCS: 82947; G0277 ==

== ENCOUNTER 2020-02-03 00:26 | Day surgery (SDC) | payer OTHER | END 2020-02-03 22:42 | disposition home or self-care (01) | LOC: WOUND 00:26 | DX: E11.621 Type 2 diabetes mellitus with foot ulcer (principal); I87.2 Venous insufficiency (chronic) (peripheral); E11.59 Type 2 diabetes mellitus with other circulatory complications; E11.42 Type 2 diabetes mellitus with diabetic polyneuropathy; E03.9 Hypothyroidism, unspecified; L97.429 Non-pressure chronic ulcer of left heel and midfoot with unspecified severity; Z87.891 Personal history of nicotine dependence; L97.415 Non-pressure chronic ulcer of right heel and midfoot with muscle involvement without evidence of necrosis; Z79.4 Long term (current) use of insulin; Z79.899 Other long term (current) drug therapy ==

== ENCOUNTER 2020-02-12 00:26 | Day surgery (SDC) | payer OTHER | END 2020-02-12 22:40 | disposition home or self-care (01) | LOC: WOUND 00:26 | DX: E11.621 Type 2 diabetes mellitus with foot ulcer (principal); I87.2 Venous insufficiency (chronic) (peripheral); E11.59 Type 2 diabetes mellitus with other circulatory complications; L97.509 Non-pressure chronic ulcer of other part of unspecified foot with unspecified severity; Z79.4 Long term (current) use of insulin | CPT/HCPCS: G0463 ==

== ENCOUNTER 2020-02-26 00:36 | Day surgery (SDC) | payer OTHER | END 2020-02-26 22:53 | disposition home or self-care (01) | LOC: WOUND 00:36 | DX: E11.621 Type 2 diabetes mellitus with foot ulcer (principal); E11.59 Type 2 diabetes mellitus with other circulatory complications; I87.2 Venous insufficiency (chronic) (peripheral); L97.419 Non-pressure chronic ulcer of right heel and midfoot with unspecified severity; Z79.4 Long term (current) use of insulin | CPT/HCPCS: G0463 ==

== ENCOUNTER 2020-03-02 00:19 | Day surgery (SDC) | payer OTHER | END 2020-03-02 22:48 | disposition home or self-care (01) | LOC: WOUND 00:19 | DX: E11.621 Type 2 diabetes mellitus with foot ulcer (principal); L97.512 Non-pressure chronic ulcer of other part of right foot with fat layer exposed; E11.52 Type 2 diabetes mellitus with diabetic peripheral angiopathy with gangrene; I96 Gangrene, not elsewhere classified; E11.59 Type 2 diabetes mellitus with other circulatory complications; I87.2 Venous insufficiency (chronic) (peripheral); E11.42 Type 2 diabetes mellitus with diabetic polyneuropathy; E11.69 Type 2 diabetes mellitus with other specified complication; M86.8X7 Other osteomyelitis, ankle and foot; B18.2 Chronic viral hepatitis C; E03.9 Hypothyroidism, unspecified; F42.9 Obsessive-compulsive disorder, unspecified; K74.60 Unspecified cirrhosis of liver; D64.9 Anemia, unspecified; J45.909 Unspecified asthma, uncomplicated; M10.9 Gout, unspecified; M19.90 Unspecified osteoarthritis, unspecified site; Z88.8 Allergy status to other drugs, medicaments and biological substances; Z91.018 Allergy to other foods; Z91.040 Latex allergy status; Z79.4 Long term (current) use of insulin; Z79.2 Long term (current) use of antibiotics; Z79.899 Other long term (current) drug therapy; Z87.891 Personal history of nicotine dependence | CPT/HCPCS: G0463 ==

== ENCOUNTER 2020-03-11 00:43 | Day surgery (SDC) | payer OTHER | END 2020-03-11 22:39 | disposition home or self-care (01) | LOC: WOUND 00:43 | DX: E11.621 Type 2 diabetes mellitus with foot ulcer (principal); L97.411 Non-pressure chronic ulcer of right heel and midfoot limited to breakdown of skin; E11.59 Type 2 diabetes mellitus with other circulatory complications; I87.2 Venous insufficiency (chronic) (peripheral); Z79.4 Long term (current) use of insulin; Z79.899 Other long term (current) drug therapy; Z88.8 Allergy status to other drugs, medicaments and biological substances; Z91.018 Allergy to other foods; Z91.040 Latex allergy status | CPT/HCPCS: G0463 ==

== ENCOUNTER 2020-03-24 00:43 | Day surgery (SDC) | payer OTHER | END 2020-03-24 22:47 | disposition home or self-care (01) | LOC: WOUND 00:43 | DX: E11.621 Type 2 diabetes mellitus with foot ulcer (principal); L97.412 Non-pressure chronic ulcer of right heel and midfoot with fat layer exposed; E11.52 Type 2 diabetes mellitus with diabetic peripheral angiopathy with gangrene; I96 Gangrene, not elsewhere classified; B18.2 Chronic viral hepatitis C; E03.9 Hypothyroidism, unspecified; F42.9 Obsessive-compulsive disorder, unspecified; E11.42 Type 2 diabetes mellitus with diabetic polyneuropathy; E11.59 Type 2 diabetes mellitus with other circulatory complications; I87.2 Venous insufficiency (chronic) (peripheral); H74.90 Unspecified disorder of middle ear and mastoid, unspecified ear; D64.9 Anemia, unspecified; I89.0 Lymphedema, not elsewhere classified; J45.909 Unspecified asthma, uncomplicated; K74.60 Unspecified cirrhosis of liver; M10.9 Gout, unspecified; M19.90 Unspecified osteoarthritis, unspecified site; E11.40 Type 2 diabetes mellitus with diabetic neuropathy, unspecified; Z91.040 Latex allergy status; Z91.018 Allergy to other foods; Z88.8 Allergy status to other drugs, medicaments and biological substances; Z79.51 Long term (current) use of inhaled steroids; Z79.4 Long term (current) use of insulin; Z79.899 Other long term (current) drug therapy; Z87.891 Personal history of nicotine dependence; Z89.411 Acquired absence of right great toe ==

== ENCOUNTER 2020-04-02 00:08 | Day surgery (SDC) | payer OTHER | END 2020-04-02 23:17 | disposition home or self-care (01) | LOC: WOUND 00:08 | DX: E11.621 Type 2 diabetes mellitus with foot ulcer (principal); E11.59 Type 2 diabetes mellitus with other circulatory complications; I87.2 Venous insufficiency (chronic) (peripheral); E11.42 Type 2 diabetes mellitus with diabetic polyneuropathy; E03.9 Hypothyroidism, unspecified; L97.412 Non-pressure chronic ulcer of right heel and midfoot with fat layer exposed; Z87.891 Personal history of nicotine dependence; Z79.899 Other long term (current) drug therapy; Z79.4 Long term (current) use of insulin | CPT/HCPCS: G0463 ==

== ENCOUNTER 2020-04-09 08:32 | Day surgery (SDC) | payer OTHER | END 2020-04-09 23:36 | disposition home or self-care (01) | LOC: WOUND 08:32 | DX: E11.621 Type 2 diabetes mellitus with foot ulcer (principal); I87.2 Venous insufficiency (chronic) (peripheral); E11.59 Type 2 diabetes mellitus with other circulatory complications; E11.42 Type 2 diabetes mellitus with diabetic polyneuropathy; E03.9 Hypothyroidism, unspecified; L97.412 Non-pressure chronic ulcer of right heel and midfoot with fat layer exposed; Z87.891 Personal history of nicotine dependence; Z79.4 Long term (current) use of insulin; Z79.899 Other long term (current) drug therapy | CPT/HCPCS: G0463 ==

== ENCOUNTER 2020-04-16 00:15 | Day surgery (SDC) | payer OTHER | END 2020-04-16 23:16 | disposition home or self-care (01) | LOC: WOUND 00:15 | DX: E11.621 Type 2 diabetes mellitus with foot ulcer (principal); L97.412 Non-pressure chronic ulcer of right heel and midfoot with fat layer exposed; E11.52 Type 2 diabetes mellitus with diabetic peripheral angiopathy with gangrene; I96 Gangrene, not elsewhere classified; I89.0 Lymphedema, not elsewhere classified; J45.909 Unspecified asthma, uncomplicated; H74.90 Unspecified disorder of middle ear and mastoid, unspecified ear; I87.2 Venous insufficiency (chronic) (peripheral); E11.59 Type 2 diabetes mellitus with other circulatory complications; B18.2 Chronic viral hepatitis C; E11.42 Type 2 diabetes mellitus with diabetic polyneuropathy; D64.9 Anemia, unspecified; E03.9 Hypothyroidism, unspecified; K74.60 Unspecified cirrhosis of liver; M10.9 Gout, unspecified; M19.90 Unspecified osteoarthritis, unspecified site; F42.9 Obsessive-compulsive disorder, unspecified; Z87.891 Personal history of nicotine dependence; Z89.431 Acquired absence of right foot; Z88.8 Allergy status to other drugs, medicaments and biological substances; Z91.018 Allergy to other foods; Z91.040 Latex allergy status; Z79.4 Long term (current) use of insulin; Z79.899 Other long term (current) drug therapy ==

== ENCOUNTER 2020-04-23 00:16 | Day surgery (SDC) | payer OTHER | END 2020-04-23 22:51 | disposition home or self-care (01) | LOC: WOUND 00:16 | DX: E11.621 Type 2 diabetes mellitus with foot ulcer (principal); I87.2 Venous insufficiency (chronic) (peripheral); E11.59 Type 2 diabetes mellitus with other circulatory complications; E11.42 Type 2 diabetes mellitus with diabetic polyneuropathy; Z87.891 Personal history of nicotine dependence; E03.9 Hypothyroidism, unspecified; L97.412 Non-pressure chronic ulcer of right heel and midfoot with fat layer exposed; Z79.4 Long term (current) use of insulin; Z79.899 Other long term (current) drug therapy | CPT/HCPCS: G0463 ==

== ENCOUNTER 2020-05-07 00:10 | Day surgery (SDC) | payer OTHER | END 2020-05-07 23:27 | disposition home or self-care (01) | LOC: WOUND 00:10 | DX: E11.621 Type 2 diabetes mellitus with foot ulcer (principal); E11.59 Type 2 diabetes mellitus with other circulatory complications; I87.2 Venous insufficiency (chronic) (peripheral); E11.42 Type 2 diabetes mellitus with diabetic polyneuropathy; E03.9 Hypothyroidism, unspecified; L97.412 Non-pressure chronic ulcer of right heel and midfoot with fat layer exposed; Z87.891 Personal history of nicotine dependence; Z79.4 Long term (current) use of insulin; Z79.899 Other long term (current) drug therapy ==

== ENCOUNTER 2020-05-14 00:16 | Day surgery (SDC) | payer OTHER ==
[~2020-05-14 00:16] MED LIST changes: +ALBU90OI INH; +ATOR20 PO; +EUTHYROX125 MCG PO; +FURO40 PO; +LISI20 PO; +POTA10T PO
== END 2020-05-14 23:15 | disposition home or self-care (01) ==
LOC: WOUND 00:16
DX: E11.621 Type 2 diabetes mellitus with foot ulcer (principal); I87.2 Venous insufficiency (chronic) (peripheral); E11.59 Type 2 diabetes mellitus with other circulatory complications; Z87.891 Personal history of nicotine dependence; E11.42 Type 2 diabetes mellitus with diabetic polyneuropathy; L97.412 Non-pressure chronic ulcer of right heel and midfoot with fat layer exposed; Z79.899 Other long term (current) drug therapy; Z79.4 Long term (current) use of insulin
CPT/HCPCS: 87070; 87075; 87077; 87147; 87186; 87205

== ENCOUNTER 2020-05-15 10:19 | Day surgery (SDC) | payer OTHER ==
[~2020-05-15] VITALS: Ht 160 cm; Wt 93.4 kg
--- NOTE | 2020-05-15 12:05 | NUR ---
05/15/20 1205 SOLANGE TRIPATHI PT DELAYED DUE TO HARD IV START. IV WAS ATTEMPTED BY 6 DIFFERENT NURSES AND 2 MAS. PT TOLERATED WELL. IV STARTED IN R HAND SUCCESSFULLY.
--- NOTE | 2020-05-15 14:18 | NUR ---
05/15/20 1418 Kendal Talbert A QUARTER SIZE ULCER PRESENT ON BALL OF OPERATIVE LEG. NON OPERATIVE LEG RED, WARM TO TOUCH. SURGEON AWARE.
== END 2020-05-15 13:10 | disposition home or self-care (01) ==
LOC: ORSCSDS 10:19
PROVIDERS: Podiatrist Foot & Ankle Surgery
PROC: 0L8N0ZZ Division of Right Lower Leg Tendon, Open Approach (ICD-10-PCS; principal; 2020-05-15 11:00)
DX: M24.571 Contracture, right ankle (principal); E11.621 Type 2 diabetes mellitus with foot ulcer; I10 Essential (primary) hypertension; J45.909 Unspecified asthma, uncomplicated; E03.9 Hypothyroidism, unspecified; E11.42 Type 2 diabetes mellitus with diabetic polyneuropathy; Z79.899 Other long term (current) drug therapy; E66.01 Morbid (severe) obesity due to excess calories; Z68.36 Body mass index [BMI] 36.0-36.9, adult; Z87.891 Personal history of nicotine dependence
CPT/HCPCS: 82947; J0171; J0690; J2250; J2704; J3010; J3370; J7120

== ENCOUNTER 2020-09-07 00:18 | Day surgery (SDC) | payer OTHER | END 2020-09-07 22:55 | disposition home or self-care (01) | LOC: WOUND 00:18 | DX: E11.621 Type 2 diabetes mellitus with foot ulcer (principal); L97.415 Non-pressure chronic ulcer of right heel and midfoot with muscle involvement without evidence of necrosis; I87.2 Venous insufficiency (chronic) (peripheral); E11.59 Type 2 diabetes mellitus with other circulatory complications; Z91.040 Latex allergy status; Z88.8 Allergy status to other drugs, medicaments and biological substances; Z91.018 Allergy to other foods; Z87.891 Personal history of nicotine dependence | CPT/HCPCS: A9270; G0463 ==

== ENCOUNTER → 2020-09-11 | Outpatient (CLI) | payer OTHER | END | disposition home or self-care (01) | LOC: LAB HH 14:00 → LAB 14:00 | DX: S91.301A Unspecified open wound, right foot, initial encounter (principal) | CPT/HCPCS: 87070; 87075; 87076; 87077; 87185; 87186; 87205 ==

== ENCOUNTER 2020-09-21 00:23 | Day surgery (SDC) | payer OTHER | END 2020-09-21 22:44 | disposition home or self-care (01) | LOC: WOUND 00:23 | DX: E11.621 Type 2 diabetes mellitus with foot ulcer (principal); L97.415 Non-pressure chronic ulcer of right heel and midfoot with muscle involvement without evidence of necrosis; L97.512 Non-pressure chronic ulcer of other part of right foot with fat layer exposed | CPT/HCPCS: A9270 ==

== ENCOUNTER 2020-09-28 00:10 | Day surgery (SDC) | payer OTHER | END 2020-09-28 23:08 | disposition home or self-care (01) | LOC: WOUND 00:10 | DX: E11.621 Type 2 diabetes mellitus with foot ulcer (principal); L97.412 Non-pressure chronic ulcer of right heel and midfoot with fat layer exposed; L97.512 Non-pressure chronic ulcer of other part of right foot with fat layer exposed; I87.2 Venous insufficiency (chronic) (peripheral); E11.59 Type 2 diabetes mellitus with other circulatory complications | CPT/HCPCS: A9270 ==

== ENCOUNTER 2020-10-07 08:16 | Day surgery (SDC) | payer OTHER ==
[2020-10-07] MEDS ORDERED: CEFTRIAXONE2 G1 IV (11:47)
== END 2020-10-07 11:08 | disposition home or self-care (01) ==
LOC: ATC 08:16
DX: E11.621 Type 2 diabetes mellitus with foot ulcer (principal); R93.6 Abnormal findings on diagnostic imaging of limbs; B95.2 Enterococcus as the cause of diseases classified elsewhere
CPT/HCPCS: 36569; 96365; C1751; J0696

== ENCOUNTER 2020-10-08 02:05 | Day surgery (SDC) | payer OTHER ==
[~2020-10-08 02:05] MED LIST changes: +CEFTRIAXONE2 G1 IV
== END 2020-10-08 08:22 | disposition home or self-care (01) ==
LOC: ATC 02:05
DX: E11.621 Type 2 diabetes mellitus with foot ulcer (principal); B95.2 Enterococcus as the cause of diseases classified elsewhere; R93.6 Abnormal findings on diagnostic imaging of limbs
CPT/HCPCS: 96365; J0696

== ENCOUNTER 2020-10-09 02:00 | Day surgery (SDC) | payer OTHER ==
--- NOTE | 2020-10-09 08:34 | NUR ---
ECCHYMOSIS NOTED TO LEFT ELBOW AND FOREARM AREA FROM PRIOR PICC PLACEMENT ATTEMPT PER PT REPORT. PT REPORTS HER ARM IS STILL SORE.
== END 2020-10-09 08:14 | disposition home or self-care (01) ==
LOC: ATC 02:00
DX: E11.621 Type 2 diabetes mellitus with foot ulcer (principal); R93.6 Abnormal findings on diagnostic imaging of limbs; B95.2 Enterococcus as the cause of diseases classified elsewhere
CPT/HCPCS: 96365; J0696

== ENCOUNTER 2020-10-10 07:51 | Day surgery (SDC) | payer OTHER | END 2020-10-10 08:27 | disposition home or self-care (01) | LOC: ATC 07:51 | DX: E11.621 Type 2 diabetes mellitus with foot ulcer (principal); R93.6 Abnormal findings on diagnostic imaging of limbs; B95.2 Enterococcus as the cause of diseases classified elsewhere | CPT/HCPCS: 96365; J0696 ==

== ENCOUNTER 2020-10-11 07:45 | Day surgery (SDC) | payer OTHER ==
--- NOTE | 2020-10-11 08:30 | NUR ---
PT REQUESTING INFORMATION RE: MRSA. LIVING WITH MRSA PAMPHLET GIVEN.
== END 2020-10-11 08:20 | disposition home or self-care (01) ==
LOC: ATC 07:45
DX: E11.621 Type 2 diabetes mellitus with foot ulcer (principal); L97.509 Non-pressure chronic ulcer of other part of unspecified foot with unspecified severity; R93.6 Abnormal findings on diagnostic imaging of limbs; B95.2 Enterococcus as the cause of diseases classified elsewhere
CPT/HCPCS: 96365; J0696

== ENCOUNTER 2020-10-12 00:02 | Day surgery (SDC) | payer OTHER | END 2020-10-12 22:57 | disposition home or self-care (01) | LOC: WOUND 00:02 | DX: E11.621 Type 2 diabetes mellitus with foot ulcer (principal); L97.416 Non-pressure chronic ulcer of right heel and midfoot with bone involvement without evidence of necrosis; I87.2 Venous insufficiency (chronic) (peripheral); S80.811D Abrasion, right lower leg, subsequent encounter; X58.XXXD Exposure to other specified factors, subsequent encounter; S80.812A Abrasion, left lower leg, initial encounter; X58.XXXA Exposure to other specified factors, initial encounter; E11.59 Type 2 diabetes mellitus with other circulatory complications; R93.6 Abnormal findings on diagnostic imaging of limbs; E03.9 Hypothyroidism, unspecified; E11.42 Type 2 diabetes mellitus with diabetic polyneuropathy; Z87.891 Personal history of nicotine dependence | CPT/HCPCS: A9270 ==

== ENCOUNTER 2020-10-12 00:16 | Day surgery (SDC) | payer OTHER | END 2020-10-12 09:39 | disposition home or self-care (01) | LOC: ATC 00:16 | DX: E11.621 Type 2 diabetes mellitus with foot ulcer (principal); R93.6 Abnormal findings on diagnostic imaging of limbs; B95.2 Enterococcus as the cause of diseases classified elsewhere | CPT/HCPCS: 96365; J0696 ==

== ENCOUNTER 2020-10-13 00:39 | Day surgery (SDC) | payer OTHER | END 2020-10-13 08:55 | disposition home or self-care (01) | LOC: ATC 00:39 | DX: E11.621 Type 2 diabetes mellitus with foot ulcer (principal); R93.6 Abnormal findings on diagnostic imaging of limbs; B95.2 Enterococcus as the cause of diseases classified elsewhere | CPT/HCPCS: 96365; C1751; J0696 ==

== ENCOUNTER 2020-10-14 00:15 | Day surgery (SDC) | payer OTHER | END 2020-10-14 08:07 | disposition home or self-care (01) | LOC: ATC 00:15 | DX: E11.621 Type 2 diabetes mellitus with foot ulcer (principal); L97.509 Non-pressure chronic ulcer of other part of unspecified foot with unspecified severity; R93.6 Abnormal findings on diagnostic imaging of limbs; B95.2 Enterococcus as the cause of diseases classified elsewhere | CPT/HCPCS: 96365; J0696 ==

== ENCOUNTER 2020-10-15 00:32 | Day surgery (SDC) | payer OTHER | END 2020-10-15 08:17 | disposition home or self-care (01) | LOC: ATC 00:32 | DX: E11.621 Type 2 diabetes mellitus with foot ulcer (principal); R93.6 Abnormal findings on diagnostic imaging of limbs; B95.2 Enterococcus as the cause of diseases classified elsewhere | CPT/HCPCS: 96365; J0696 ==

== ENCOUNTER 2020-10-16 07:56 | Day surgery (SDC) | payer OTHER | END 2020-10-16 23:06 | disposition home or self-care (01) | LOC: WOUND 07:56 | DX: E11.621 Type 2 diabetes mellitus with foot ulcer (principal); L97.416 Non-pressure chronic ulcer of right heel and midfoot with bone involvement without evidence of necrosis; L97.512 Non-pressure chronic ulcer of other part of right foot with fat layer exposed; I87.2 Venous insufficiency (chronic) (peripheral); S80.811D Abrasion, right lower leg, subsequent encounter; X58.XXXD Exposure to other specified factors, subsequent encounter; S80.812A Abrasion, left lower leg, initial encounter; X58.XXXA Exposure to other specified factors, initial encounter; E11.59 Type 2 diabetes mellitus with other circulatory complications; R93.6 Abnormal findings on diagnostic imaging of limbs; E03.9 Hypothyroidism, unspecified; E11.42 Type 2 diabetes mellitus with diabetic polyneuropathy; Z87.891 Personal history of nicotine dependence | CPT/HCPCS: 87071; 87075; 87077; 87186; 87205; A9270; G0463 ==

== ENCOUNTER 2020-10-17 08:26 | Day surgery (SDC) | payer OTHER | END 2020-10-17 09:12 | disposition home or self-care (01) | LOC: ATC 08:26 | DX: E11.621 Type 2 diabetes mellitus with foot ulcer (principal); L97.419 Non-pressure chronic ulcer of right heel and midfoot with unspecified severity | CPT/HCPCS: 96365; J0696 ==

== ENCOUNTER 2020-10-18 02:42 | Day surgery (SDC) | payer OTHER ==
[2020-10-19] MEDS ORDERED: VANCOMYCIN HCL1 G1 IV (11:52)
== END 2020-10-18 08:35 | disposition home or self-care (01) ==
LOC: ATC 02:42
DX: E11.621 Type 2 diabetes mellitus with foot ulcer (principal); R93.6 Abnormal findings on diagnostic imaging of limbs; B95.2 Enterococcus as the cause of diseases classified elsewhere; I87.2 Venous insufficiency (chronic) (peripheral); E11.59 Type 2 diabetes mellitus with other circulatory complications
CPT/HCPCS: 96365; J0696

== ENCOUNTER 2020-10-19 00:05 | Day surgery (SDC) | payer OTHER ==
[2020-10-19] MEDS ORDERED: VANCOMYCIN HCL1 G1 IV (11:52)
== END 2020-10-19 22:52 | disposition home or self-care (01) ==
LOC: WOUND 00:05
DX: E11.621 Type 2 diabetes mellitus with foot ulcer (principal); L97.416 Non-pressure chronic ulcer of right heel and midfoot with bone involvement without evidence of necrosis; S80.812D Abrasion, left lower leg, subsequent encounter; X58.XXXD Exposure to other specified factors, subsequent encounter; I87.2 Venous insufficiency (chronic) (peripheral); E11.59 Type 2 diabetes mellitus with other circulatory complications; R93.6 Abnormal findings on diagnostic imaging of limbs; E03.9 Hypothyroidism, unspecified; E11.42 Type 2 diabetes mellitus with diabetic polyneuropathy; Z87.891 Personal history of nicotine dependence
CPT/HCPCS: 80048; 82565; 96365; 96366; A9270; G0463; J0696; J3370; J7050

== ENCOUNTER 2020-10-19 21:27 | Emergency (ER) | payer OTHER ==
[~2020-10-19] VITALS: Ht 160 cm; Wt 88.5 kg
[~2020-10-19 21:27] MED LIST changes: +VANCOMYCIN HCL1 G1 IV
== END 2020-10-20 00:29 | disposition home or self-care (01) ==
LOC: ER 21:27
DX: I82.611 Acute embolism and thrombosis of superficial veins of right upper extremity (principal); T82.898A Other specified complication of vascular prosthetic devices, implants and grafts, initial encounter; Z91.02 Food additives allergy status; Z79.899 Other long term (current) drug therapy
CPT/HCPCS: 93971; 99285-25

== ENCOUNTER 2020-10-20 03:38 | Day surgery (SDC) | payer OTHER | END 2020-10-20 09:15 | disposition home or self-care (01) | LOC: ATC 03:38 | DX: E11.621 Type 2 diabetes mellitus with foot ulcer (principal); L97.419 Non-pressure chronic ulcer of right heel and midfoot with unspecified severity; R93.6 Abnormal findings on diagnostic imaging of limbs; B95.2 Enterococcus as the cause of diseases classified elsewhere; I87.2 Venous insufficiency (chronic) (peripheral) | CPT/HCPCS: 96365; J3370 ==

== ENCOUNTER 2020-10-21 03:27 | Day surgery (SDC) | payer OTHER ==
[2020-10-21 08:29] LABS: Hematocrit 30.7 % (33.0-51.0); Hemoglobin 10.4 g/dL (11.5-16.0)
[2020-10-21 09:00] LABS: Albumin, Blood 2.7 g/dL (3.4-5.0); Anion Gap 10 mmol/L (6-16); Blood Urea Nitrogen 15 mg/dL (8-24); Bun/Creatinine Ratio 6.6 (12.0-20.0); CO2, Blood 22 mmol/L (21-32); Calcium, Blood 8.3 mg/dL (8.5-10.1); Chloride, Blood 106 mmol/L (98-108); Creatinine, Blood 2.26 mg/dL (0.40-1.00); Glomerular Filtration Rate 24 (60-); Glucose, Blood 164 mg/dL (70-99); Phosphorus, Blood 3.7 mg/dL (2.5-4.9); Potassium, Blood 3.7 mmol/L (3.5-5.5); Sodium, Blood 138 mmol/L (136-145)
[2020-10-21 09:06] LABS: Vancomycin, Trough 20.9 ug/mL (5.0-10.0)
--- NOTE | 2020-10-21 10:11 | NUR ---
0930: MAURICIO FROM PHARMACY [facility] [place] TODAY, HE WILL BE WRITING NEW ORDERS FOR TOMORROW
== END 2020-10-21 09:30 | disposition home or self-care (01) ==
LOC: ATC 03:27
PROVIDERS: Nurse Practitioner Family
DX: E11.621 Type 2 diabetes mellitus with foot ulcer (principal); L97.419 Non-pressure chronic ulcer of right heel and midfoot with unspecified severity; E11.59 Type 2 diabetes mellitus with other circulatory complications; I87.2 Venous insufficiency (chronic) (peripheral); R93.6 Abnormal findings on diagnostic imaging of limbs; B95.2 Enterococcus as the cause of diseases classified elsewhere
CPT/HCPCS: 36415; 80069; 80202; 84443; 85014; 85018; 99211

== ENCOUNTER 2020-10-22 00:17 | Day surgery (SDC) | payer OTHER ==
[2020-10-22 08:27] LABS: Creatinine, Blood 2.84 mg/dL (0.40-1.00); Vancomycin, Trough 13.7 ug/mL (5.0-10.0)
== END 2020-10-22 12:26 | disposition home or self-care (01) ==
LOC: ATC 00:17
PROVIDERS: Nurse Practitioner Family
DX: E11.621 Type 2 diabetes mellitus with foot ulcer (principal); L97.419 Non-pressure chronic ulcer of right heel and midfoot with unspecified severity; I87.2 Venous insufficiency (chronic) (peripheral); E11.59 Type 2 diabetes mellitus with other circulatory complications
CPT/HCPCS: 80202; 82565; 96365; J3370

== ENCOUNTER 2020-10-22 00:55 | Day surgery (SDC) | payer OTHER | END 2020-10-22 23:02 | disposition home or self-care (01) | LOC: HBO 00:55 | DX: E11.621 Type 2 diabetes mellitus with foot ulcer (principal); L97.509 Non-pressure chronic ulcer of other part of unspecified foot with unspecified severity; I87.2 Venous insufficiency (chronic) (peripheral); S80.812D Abrasion, left lower leg, subsequent encounter; X58.XXXD Exposure to other specified factors, subsequent encounter; E11.59 Type 2 diabetes mellitus with other circulatory complications; R93.6 Abnormal findings on diagnostic imaging of limbs | CPT/HCPCS: 82947; G0277 ==

== ENCOUNTER 2020-10-23 00:14 | Day surgery (SDC) | payer OTHER ==
[~2020-10-23] VITALS: Ht 160 cm; Wt 89.0 kg
[2020-10-23 11:06] LABS: Creatinine, Blood 2.68 mg/dL (0.40-1.00); Vancomycin, Trough 15.4 ug/mL (5.0-10.0)
== END 2020-10-23 12:11 | disposition home or self-care (01) ==
LOC: ATC 00:14
PROVIDERS: Nurse Practitioner Family
DX: E11.621 Type 2 diabetes mellitus with foot ulcer (principal); L97.416 Non-pressure chronic ulcer of right heel and midfoot with bone involvement without evidence of necrosis; E11.59 Type 2 diabetes mellitus with other circulatory complications; R93.6 Abnormal findings on diagnostic imaging of limbs; B95.2 Enterococcus as the cause of diseases classified elsewhere; I87.2 Venous insufficiency (chronic) (peripheral)
CPT/HCPCS: 80202; 82565; 96365; J3370

== ENCOUNTER 2020-10-23 00:48 | Day surgery (SDC) | payer OTHER | END 2020-10-23 22:41 | disposition home or self-care (01) | LOC: HBO 00:48 | DX: E11.621 Type 2 diabetes mellitus with foot ulcer (principal); L97.509 Non-pressure chronic ulcer of other part of unspecified foot with unspecified severity; I87.2 Venous insufficiency (chronic) (peripheral); S80.812D Abrasion, left lower leg, subsequent encounter; X58.XXXD Exposure to other specified factors, subsequent encounter; E11.59 Type 2 diabetes mellitus with other circulatory complications; R93.6 Abnormal findings on diagnostic imaging of limbs | CPT/HCPCS: 80202; 82565; 82947; 96365; G0277; J3370 ==

== ENCOUNTER 2020-10-24 07:26 | Day surgery (SDC) | payer OTHER | END 2020-10-24 08:55 | disposition home or self-care (01) | LOC: ATC 07:26 | DX: E11.621 Type 2 diabetes mellitus with foot ulcer (principal); L97.509 Non-pressure chronic ulcer of other part of unspecified foot with unspecified severity; E11.59 Type 2 diabetes mellitus with other circulatory complications; I87.2 Venous insufficiency (chronic) (peripheral); R93.6 Abnormal findings on diagnostic imaging of limbs; B95.2 Enterococcus as the cause of diseases classified elsewhere | CPT/HCPCS: 96365; J3370 ==

== ENCOUNTER 2020-10-25 07:44 | Day surgery (SDC) | payer OTHER | END 2020-10-25 08:57 | disposition home or self-care (01) | LOC: ATC 07:44 | DX: E11.621 Type 2 diabetes mellitus with foot ulcer (principal); L97.419 Non-pressure chronic ulcer of right heel and midfoot with unspecified severity; I87.2 Venous insufficiency (chronic) (peripheral); E11.59 Type 2 diabetes mellitus with other circulatory complications | CPT/HCPCS: 96365; J3370 ==

== ENCOUNTER 2020-10-26 00:04 | Day surgery (SDC) | payer OTHER ==
[~2020-10-26] VITALS: Ht 160 cm; Wt 89.0 kg
[2020-10-26 08:50] LABS: Creatinine, Blood 3.21 mg/dL (0.40-1.00); Vancomycin, Trough 21.4 ug/mL (5.0-10.0)
--- NOTE | 2020-10-26 09:07 | NUR ---
CRITICAL LAB RESULTS DISCUSSED W/ PHARMACIST ELIANA MARX, WITH SUGGESTIONS FOR SWITCHING TO DAPTO. THIS INFO WAS GIVEN TO RENATA HERNANDEZ NP.
--- NOTE | 2020-10-26 10:37 | NUR ---
1030: LABS DRAWN PER PERIPHERAL DRAW. UNSUCCESSFUL IV ATTEMPT TO LAC X1. PT TO RETURN TOMORROW TO START DAPTO PER PHARMACISTFletcher.
[2020-10-26 11:06] LABS: Albumin, Blood 2.3 g/dL (3.4-5.0); Albumin/Globulin Ratio 0.5 (0.8-1.8); Bilirubin, Total 0.2 mg/dL (0.1-1.0); C-REACTIVE PROTEIN, EXT RANGE 4.69 mg/dL (0.000-0.300); Calcium, Blood 7.8 mg/dL (8.5-10.1); Creatinine, Blood 3.12 mg/dL (0.40-1.00); Globulin, Blood 4.6 g/dL (2.2-4.0); Potassium, Blood 3.2 mmol/L (3.5-5.5); Total Protein, Blood 6.9 g/dL (6.4-8.2)
== END 2020-10-26 08:25 | disposition home or self-care (01) ==
LOC: ATC 00:04
PROVIDERS: Nurse Practitioner Family
DX: E11.621 Type 2 diabetes mellitus with foot ulcer (principal); L97.419 Non-pressure chronic ulcer of right heel and midfoot with unspecified severity; E11.59 Type 2 diabetes mellitus with other circulatory complications; I87.2 Venous insufficiency (chronic) (peripheral)
CPT/HCPCS: 36415; 80053; 80202; 82565; 86140; 99211

== ENCOUNTER 2020-10-26 00:22 | Day surgery (SDC) | payer OTHER | END 2020-10-26 23:00 | disposition home or self-care (01) | LOC: HBO 00:22 | DX: E11.621 Type 2 diabetes mellitus with foot ulcer (principal); L97.509 Non-pressure chronic ulcer of other part of unspecified foot with unspecified severity; M86.679 Other chronic osteomyelitis, unspecified ankle and foot; S80.812D Abrasion, left lower leg, subsequent encounter; X58.XXXD Exposure to other specified factors, subsequent encounter; I87.2 Venous insufficiency (chronic) (peripheral); E11.59 Type 2 diabetes mellitus with other circulatory complications | CPT/HCPCS: 36415; 80053; 80202; 82565; 82947; 86140; 99211; A9270; G0277 ==

== ENCOUNTER 2020-10-27 02:54 | Day surgery (SDC) | payer OTHER | END 2020-10-27 12:49 | disposition home or self-care (01) | LOC: HBO 02:54 | DX: E11.621 Type 2 diabetes mellitus with foot ulcer (principal); L97.509 Non-pressure chronic ulcer of other part of unspecified foot with unspecified severity; M86.679 Other chronic osteomyelitis, unspecified ankle and foot; I87.2 Venous insufficiency (chronic) (peripheral); E11.59 Type 2 diabetes mellitus with other circulatory complications; S80.812D Abrasion, left lower leg, subsequent encounter; X58.XXXD Exposure to other specified factors, subsequent encounter | CPT/HCPCS: 82947; 85025; 85651; 96365; C1751; G0277; J0878 ==

== ENCOUNTER 2020-10-28 03:19 | Day surgery (SDC) | payer OTHER | END 2020-10-28 23:26 | disposition home or self-care (01) | LOC: HBO 03:19 | DX: E11.621 Type 2 diabetes mellitus with foot ulcer (principal); L97.509 Non-pressure chronic ulcer of other part of unspecified foot with unspecified severity; M86.679 Other chronic osteomyelitis, unspecified ankle and foot; S80.812D Abrasion, left lower leg, subsequent encounter; X58.XXXD Exposure to other specified factors, subsequent encounter; I87.2 Venous insufficiency (chronic) (peripheral); E11.59 Type 2 diabetes mellitus with other circulatory complications | CPT/HCPCS: 82947; G0277 ==

== ENCOUNTER 2020-10-29 03:55 | Day surgery (SDC) | payer OTHER | END 2020-10-29 23:40 | disposition home or self-care (01) | LOC: HBO 03:55 | DX: E11.621 Type 2 diabetes mellitus with foot ulcer (principal); L97.509 Non-pressure chronic ulcer of other part of unspecified foot with unspecified severity; M86.679 Other chronic osteomyelitis, unspecified ankle and foot; S80.812D Abrasion, left lower leg, subsequent encounter; X58.XXXD Exposure to other specified factors, subsequent encounter; I87.2 Venous insufficiency (chronic) (peripheral); E11.59 Type 2 diabetes mellitus with other circulatory complications | CPT/HCPCS: 80053; 82550; 82947; 96365; G0277; J0878 ==

== ENCOUNTER 2020-10-29 04:05 | Day surgery (SDC) | payer OTHER ==
[2020-10-29 08:57] LABS: Albumin, Blood 2.2 g/dL (3.4-5.0); Albumin/Globulin Ratio 0.5 (0.8-1.8); Bilirubin, Total 0.2 mg/dL (0.1-1.0); Bun/Creatinine Ratio 7.8 (12.0-20.0); Calcium, Blood 7.9 mg/dL (8.5-10.1); Creatinine, Blood 2.93 mg/dL (0.40-1.00); Globulin, Blood 4.7 g/dL (2.2-4.0); Potassium, Blood 3.1 mmol/L (3.5-5.5); Total Protein, Blood 6.9 g/dL (6.4-8.2)
== END 2020-10-29 09:06 | disposition home or self-care (01) ==
LOC: ATC 04:05
PROVIDERS: Nurse Practitioner Family
DX: E11.621 Type 2 diabetes mellitus with foot ulcer (principal); L97.419 Non-pressure chronic ulcer of right heel and midfoot with unspecified severity; I87.2 Venous insufficiency (chronic) (peripheral); E11.59 Type 2 diabetes mellitus with other circulatory complications
CPT/HCPCS: 80053; 82550; 96365; J0878

== ENCOUNTER 2020-10-30 00:54 | Day surgery (SDC) | payer OTHER ==
[2020-10-31] MEDS ORDERED: LOSA50 PO (08:08)
[2020-10-31] MEDS ORDERED: OMEP20ER PO (08:10)
== END 2020-10-30 23:10 | disposition home or self-care (01) ==
LOC: HBO 00:54
DX: E11.621 Type 2 diabetes mellitus with foot ulcer (principal); L97.509 Non-pressure chronic ulcer of other part of unspecified foot with unspecified severity; M86.679 Other chronic osteomyelitis, unspecified ankle and foot; S80.812D Abrasion, left lower leg, subsequent encounter; X58.XXXD Exposure to other specified factors, subsequent encounter; I87.2 Venous insufficiency (chronic) (peripheral); E11.59 Type 2 diabetes mellitus with other circulatory complications
CPT/HCPCS: 82947; G0277

== ENCOUNTER 2020-10-31 07:56 | Day surgery (SDC) | payer OTHER ==
[2020-10-31] MEDS ORDERED: LOSA50 PO (08:08)
[2020-10-31] MEDS ORDERED: OMEP20ER PO (08:10)
--- NOTE | 2020-10-31 08:59 | NUR ---
PT PRESENTS TODAY WITH ELEVATED BP. STATES SHE TOOK HER LOSARTAN THIS AM AND THAT BP HAS REMAINED ELEVATED. PT WORKING WITH HER PCP TO CONTROL BP'S. TODAY PT IS SYMPTOMATIC WITH HEADACHE AND NAUSEA ALONG WITH HER ELEVATED BP. PT EDUCATED REGARDING SYMPTOMS AND ELEVATED BP. ESCORTED PT TO ER FOR FURTHER EVAL AND TX OF BP AND SYMPTOMS.
== END 2020-10-31 08:40 | disposition home or self-care (01) ==
LOC: ATC 07:56
DX: E11.621 Type 2 diabetes mellitus with foot ulcer (principal); L97.509 Non-pressure chronic ulcer of other part of unspecified foot with unspecified severity; E11.59 Type 2 diabetes mellitus with other circulatory complications; I87.2 Venous insufficiency (chronic) (peripheral)
CPT/HCPCS: 96365; J0878

== ENCOUNTER 2020-10-31 08:41 | Emergency (ER) | payer OTHER ==
[~2020-10-31] VITALS: Ht 160 cm; Wt 88.9 kg
[~2020-10-31 08:41] MED LIST changes: +LOSA50 PO; +OMEP20ER PO
[2020-10-31 09:25] LABS: Calcium, Ionized (POC) 1.15 mmol/L (1.10-1.46); Chloride (POC) 103 mmol/L (98-108); Creatinine (POC) 2.9 mg/dL (0.6-1.0); Glucose (ISTAT POC) 246 mg/dL (70-99); Hemoglobin (POC) 10.5 g/dL (12.0-16.0); Sodium (POC) 140 mmol/L (135-148); Total CO2 (POC) 23 mmol/L (21-32)
== END 2020-10-31 10:45 | disposition home or self-care (01) ==
LOC: ER 08:41
PROVIDERS: Emergency Medicine
DX: I16.0 Hypertensive urgency (principal); I10 Essential (primary) hypertension; E11.9 Type 2 diabetes mellitus without complications; Z79.899 Other long term (current) drug therapy; Z91.040 Latex allergy status; Z88.8 Allergy status to other drugs, medicaments and biological substances; Z91.02 Food additives allergy status; Z87.891 Personal history of nicotine dependence
CPT/HCPCS: 80047; 85014; 96374; 99283-25

== ENCOUNTER 2020-11-02 07:58 | Day surgery (SDC) | payer OTHER | END 2020-11-02 08:55 | disposition home or self-care (01) | LOC: ATC 07:58 | DX: E11.621 Type 2 diabetes mellitus with foot ulcer (principal); L97.419 Non-pressure chronic ulcer of right heel and midfoot with unspecified severity; I87.2 Venous insufficiency (chronic) (peripheral); E11.59 Type 2 diabetes mellitus with other circulatory complications | CPT/HCPCS: 96365; J0878 ==

== ENCOUNTER 2020-11-03 04:48 | Day surgery (SDC) | payer OTHER | END 2020-11-03 23:43 | disposition home or self-care (01) | LOC: HBO | DX: E11.621 Type 2 diabetes mellitus with foot ulcer (principal); L97.519 Non-pressure chronic ulcer of other part of right foot with unspecified severity; E11.69 Type 2 diabetes mellitus with other specified complication; M86.679 Other chronic osteomyelitis, unspecified ankle and foot; E11.59 Type 2 diabetes mellitus with other circulatory complications; I87.2 Venous insufficiency (chronic) (peripheral); S80.812D Abrasion, left lower leg, subsequent encounter | CPT/HCPCS: 82947; G0277 ==

== ENCOUNTER 2020-11-04 04:35 | Day surgery (SDC) | payer OTHER | END 2020-11-04 22:57 | disposition home or self-care (01) | LOC: HBO | DX: E11.621 Type 2 diabetes mellitus with foot ulcer (principal); L97.419 Non-pressure chronic ulcer of right heel and midfoot with unspecified severity; E11.69 Type 2 diabetes mellitus with other specified complication; M86.679 Other chronic osteomyelitis, unspecified ankle and foot; S80.812D Abrasion, left lower leg, subsequent encounter; X58.XXXD Exposure to other specified factors, subsequent encounter; I87.2 Venous insufficiency (chronic) (peripheral); E11.59 Type 2 diabetes mellitus with other circulatory complications | CPT/HCPCS: 80053; 82947; 86140; 96365; G0277; J0878; J2001 ==

== ENCOUNTER 2020-11-05 05:28 | Day surgery (SDC) | payer OTHER | END 2020-11-05 22:45 | disposition home or self-care (01) | LOC: WOUND 05:28 | DX: E11.621 Type 2 diabetes mellitus with foot ulcer (principal); L97.512 Non-pressure chronic ulcer of other part of right foot with fat layer exposed; L89.893 Pressure ulcer of other site, stage 3; M86.679 Other chronic osteomyelitis, unspecified ankle and foot; S80.812D Abrasion, left lower leg, subsequent encounter; X58.XXXD Exposure to other specified factors, subsequent encounter; I87.2 Venous insufficiency (chronic) (peripheral); E11.59 Type 2 diabetes mellitus with other circulatory complications; E87.6 Hypokalemia; E03.9 Hypothyroidism, unspecified; E11.42 Type 2 diabetes mellitus with diabetic polyneuropathy; Z87.891 Personal history of nicotine dependence | CPT/HCPCS: A9270; G0463 ==

== ENCOUNTER 2020-11-06 04:19 | Day surgery (SDC) | payer OTHER | END 2020-11-06 23:09 | disposition home or self-care (01) | LOC: HBO 04:19 | DX: E11.621 Type 2 diabetes mellitus with foot ulcer (principal); L97.509 Non-pressure chronic ulcer of other part of unspecified foot with unspecified severity; M86.679 Other chronic osteomyelitis, unspecified ankle and foot; S80.812D Abrasion, left lower leg, subsequent encounter; X58.XXXD Exposure to other specified factors, subsequent encounter; I87.2 Venous insufficiency (chronic) (peripheral); E11.59 Type 2 diabetes mellitus with other circulatory complications | CPT/HCPCS: 82947; G0277 ==

== ENCOUNTER 2020-11-06 04:40 | Day surgery (SDC) | payer OTHER | END 2020-11-06 09:14 | disposition home or self-care (01) | LOC: ATC 04:40 | DX: E11.621 Type 2 diabetes mellitus with foot ulcer (principal); L97.419 Non-pressure chronic ulcer of right heel and midfoot with unspecified severity; E11.59 Type 2 diabetes mellitus with other circulatory complications; I87.2 Venous insufficiency (chronic) (peripheral) | CPT/HCPCS: 96365; J0878 ==

== ENCOUNTER 2020-11-08 00:10 | Day surgery (SDC) | payer OTHER ==
--- NOTE | 2020-11-08 08:59 | NUR ---
IV START: PT CAME INTO INFUSION CENTER WITH IV IN LEFT FA, FLUSHED,IV INFILTRATED. ATTEMPTED 7 MORE IV STARTS, 5 STARTS WITH BLOOD RETURN AND THEN THIS RN FLUSHED IV'S THEN INFILTRATION OCCURS. PT DID NOT GET ANTIBIOTIC TODAY. RENATA PRODUCTION MACHINE COMPUTER OPERATOR IN WOUND CENTER IS AWARE THAT PT IS IN DIRE NEED OF A MEDIPORT. PT ALSO AWARE AND WILL ALERT RENATA OF THE URGENCY.
--- NOTE | 2020-11-08 09:57 | NUR ---
PT WENT TO ER TO GET IV START, THEY WERE SUCESSFUL IN THE LEFT UPPER ARM
== END 2020-11-08 01:18 | disposition home or self-care (01) ==
LOC: ATC 00:10
DX: E11.621 Type 2 diabetes mellitus with foot ulcer (principal); L97.419 Non-pressure chronic ulcer of right heel and midfoot with unspecified severity; I87.2 Venous insufficiency (chronic) (peripheral); E11.59 Type 2 diabetes mellitus with other circulatory complications; E11.69 Type 2 diabetes mellitus with other specified complication; M86.679 Other chronic osteomyelitis, unspecified ankle and foot
CPT/HCPCS: 96365; J0878

== ENCOUNTER 2020-11-08 09:01 | Emergency (ER) | payer OTHER ==
[~2020-11-08] VITALS: Ht 160 cm; Wt 88.9 kg
== END 2020-11-08 09:49 | disposition home or self-care (01) ==
LOC: ER 09:01
DX: Z45.2 Encounter for adjustment and management of vascular access device (principal); E11.9 Type 2 diabetes mellitus without complications; Z91.02 Food additives allergy status; Z91.040 Latex allergy status; Z88.8 Allergy status to other drugs, medicaments and biological substances; Z79.4 Long term (current) use of insulin; Z79.899 Other long term (current) drug therapy; Z87.891 Personal history of nicotine dependence
CPT/HCPCS: 99281

== ENCOUNTER 2020-11-09 00:26 | Day surgery (SDC) | payer OTHER | END 2020-11-09 23:00 | disposition home or self-care (01) | LOC: WOUND 00:26 | DX: E11.621 Type 2 diabetes mellitus with foot ulcer (principal); L97.415 Non-pressure chronic ulcer of right heel and midfoot with muscle involvement without evidence of necrosis; M86.679 Other chronic osteomyelitis, unspecified ankle and foot; S80.812D Abrasion, left lower leg, subsequent encounter; X58.XXXD Exposure to other specified factors, subsequent encounter; I87.2 Venous insufficiency (chronic) (peripheral); E11.59 Type 2 diabetes mellitus with other circulatory complications; E03.9 Hypothyroidism, unspecified; E11.42 Type 2 diabetes mellitus with diabetic polyneuropathy; Z87.891 Personal history of nicotine dependence | CPT/HCPCS: A9270 ==

== ENCOUNTER 2020-11-09 00:36 | Day surgery (SDC) | payer OTHER | END 2020-11-09 23:00 | disposition home or self-care (01) | LOC: HBO 00:36 | DX: E11.621 Type 2 diabetes mellitus with foot ulcer (principal); L97.419 Non-pressure chronic ulcer of right heel and midfoot with unspecified severity; E11.69 Type 2 diabetes mellitus with other specified complication; M86.679 Other chronic osteomyelitis, unspecified ankle and foot; S80.812A Abrasion, left lower leg, initial encounter; I87.2 Venous insufficiency (chronic) (peripheral); E11.59 Type 2 diabetes mellitus with other circulatory complications; X58.XXXA Exposure to other specified factors, initial encounter | CPT/HCPCS: 82947; G0277 ==

== ENCOUNTER 2020-11-10 02:12 | Day surgery (SDC) | payer OTHER | END 2020-11-10 22:51 | disposition home or self-care (01) | LOC: HBO 02:12 | DX: E11.621 Type 2 diabetes mellitus with foot ulcer (principal); L97.809 Non-pressure chronic ulcer of other part of unspecified lower leg with unspecified severity; M86.679 Other chronic osteomyelitis, unspecified ankle and foot; S80.812D Abrasion, left lower leg, subsequent encounter; I87.2 Venous insufficiency (chronic) (peripheral); E11.59 Type 2 diabetes mellitus with other circulatory complications | CPT/HCPCS: 82947; 99211; G0277; J0878 ==

== ENCOUNTER 2020-11-11 02:19 | Day surgery (SDC) | payer OTHER | END 2020-11-11 23:51 | disposition home or self-care (01) | LOC: HBO 02:19 | DX: E11.621 Type 2 diabetes mellitus with foot ulcer (principal); L97.809 Non-pressure chronic ulcer of other part of unspecified lower leg with unspecified severity; M86.679 Other chronic osteomyelitis, unspecified ankle and foot; S80.812D Abrasion, left lower leg, subsequent encounter; X58.XXXD Exposure to other specified factors, subsequent encounter; I87.2 Venous insufficiency (chronic) (peripheral); E11.59 Type 2 diabetes mellitus with other circulatory complications | CPT/HCPCS: 36415; 80069; 82947; 83735; 85018; G0277 ==

== ENCOUNTER 2020-11-11 11:26 | Day surgery (SDC) | payer OTHER ==
[2020-11-11 13:12] LABS: Albumin, Blood 2.8 g/dL (3.4-5.0); Anion Gap 7 mmol/L (6-16); Blood Urea Nitrogen 23 mg/dL (8-24); Bun/Creatinine Ratio 12.6 (12.0-20.0); CO2, Blood 24 mmol/L (21-32); Calcium, Blood 8.5 mg/dL (8.5-10.1); Chloride, Blood 109 mmol/L (98-108); Creatinine, Blood 1.82 mg/dL (0.40-1.00); Glomerular Filtration Rate 31 (60-); Glucose, Blood 118 mg/dL (70-99); Magnesium, Blood 1.4 mg/dL (1.6-2.4); Phosphorus, Blood 2.4 mg/dL (2.5-4.9); Potassium, Blood 3.3 mmol/L (3.5-5.5); Sodium, Blood 140 mmol/L (136-145)
== END 2020-11-11 12:46 | disposition home or self-care (01) ==
LOC: ATC 11:26
PROVIDERS: Internal Medicine Nephrology
DX: E11.621 Type 2 diabetes mellitus with foot ulcer (principal); L97.419 Non-pressure chronic ulcer of right heel and midfoot with unspecified severity; E11.59 Type 2 diabetes mellitus with other circulatory complications; E11.22 Type 2 diabetes mellitus with diabetic chronic kidney disease; N18.4 Chronic kidney disease, stage 4 (severe); D63.1 Anemia in chronic kidney disease; I87.2 Venous insufficiency (chronic) (peripheral)
CPT/HCPCS: 36415; 80069; 83735; 85018

== ENCOUNTER 2020-11-12 03:48 | Day surgery (SDC) | payer OTHER | END 2020-11-12 22:48 | disposition home or self-care (01) | LOC: HBO | DX: E11.621 Type 2 diabetes mellitus with foot ulcer (principal); L97.509 Non-pressure chronic ulcer of other part of unspecified foot with unspecified severity; M86.679 Other chronic osteomyelitis, unspecified ankle and foot; S80.812D Abrasion, left lower leg, subsequent encounter; X58.XXXD Exposure to other specified factors, subsequent encounter; I87.2 Venous insufficiency (chronic) (peripheral); E11.59 Type 2 diabetes mellitus with other circulatory complications | CPT/HCPCS: 82947; G0463 ==

== ENCOUNTER 2020-11-13 04:12 | Day surgery (SDC) | payer OTHER | END 2020-11-14 00:34 | disposition home or self-care (01) | LOC: HBO | DX: E11.621 Type 2 diabetes mellitus with foot ulcer (principal); L97.509 Non-pressure chronic ulcer of other part of unspecified foot with unspecified severity; M86.679 Other chronic osteomyelitis, unspecified ankle and foot; S80.812D Abrasion, left lower leg, subsequent encounter; X58.XXXD Exposure to other specified factors, subsequent encounter; I87.2 Venous insufficiency (chronic) (peripheral); E11.59 Type 2 diabetes mellitus with other circulatory complications | CPT/HCPCS: 82947; G0277 ==

== ENCOUNTER 2020-11-16 00:24 | Day surgery (SDC) | payer OTHER | END 2020-11-16 23:16 | disposition home or self-care (01) | LOC: HBO | DX: E11.621 Type 2 diabetes mellitus with foot ulcer (principal); L97.519 Non-pressure chronic ulcer of other part of right foot with unspecified severity; E11.69 Type 2 diabetes mellitus with other specified complication; M86.679 Other chronic osteomyelitis, unspecified ankle and foot; S80.812D Abrasion, left lower leg, subsequent encounter; E11.59 Type 2 diabetes mellitus with other circulatory complications; I87.2 Venous insufficiency (chronic) (peripheral) | CPT/HCPCS: 82947; G0277 ==

== ENCOUNTER 2020-11-17 00:22 | Day surgery (SDC) | payer OTHER | END 2020-11-18 22:49 | disposition home or self-care (01) | LOC: HBO 00:22 | DX: E11.621 Type 2 diabetes mellitus with foot ulcer (principal); L97.509 Non-pressure chronic ulcer of other part of unspecified foot with unspecified severity; E11.69 Type 2 diabetes mellitus with other specified complication; E11.51 Type 2 diabetes mellitus with diabetic peripheral angiopathy without gangrene; E11.59 Type 2 diabetes mellitus with other circulatory complications; M86.679 Other chronic osteomyelitis, unspecified ankle and foot; S80.812A Abrasion, left lower leg, initial encounter | CPT/HCPCS: 82947; A9270; G0277 ==

== ENCOUNTER 2020-11-18 04:33 | Day surgery (SDC) | payer OTHER | END 2020-11-18 22:49 | disposition home or self-care (01) | LOC: HBO 04:33 | DX: E11.621 Type 2 diabetes mellitus with foot ulcer (principal); L97.509 Non-pressure chronic ulcer of other part of unspecified foot with unspecified severity; M86.679 Other chronic osteomyelitis, unspecified ankle and foot; S80.812D Abrasion, left lower leg, subsequent encounter; X58.XXXD Exposure to other specified factors, subsequent encounter; I87.2 Venous insufficiency (chronic) (peripheral); E11.59 Type 2 diabetes mellitus with other circulatory complications | CPT/HCPCS: 82947; G0277 ==

== ENCOUNTER 2020-11-19 04:05 | Day surgery (SDC) | payer OTHER | END 2020-11-19 23:19 | disposition home or self-care (01) | LOC: HBO 04:05 | DX: E11.621 Type 2 diabetes mellitus with foot ulcer (principal); L97.509 Non-pressure chronic ulcer of other part of unspecified foot with unspecified severity; M86.679 Other chronic osteomyelitis, unspecified ankle and foot; I87.2 Venous insufficiency (chronic) (peripheral); E11.59 Type 2 diabetes mellitus with other circulatory complications | CPT/HCPCS: 82947; G0463 ==

== ENCOUNTER 2020-11-20 04:41 | Day surgery (SDC) | payer OTHER | END 2020-11-20 23:51 | disposition home or self-care (01) | LOC: HBO 04:41 | DX: E11.621 Type 2 diabetes mellitus with foot ulcer (principal); L97.509 Non-pressure chronic ulcer of other part of unspecified foot with unspecified severity; M86.679 Other chronic osteomyelitis, unspecified ankle and foot; S80.812D Abrasion, left lower leg, subsequent encounter; X58.XXXD Exposure to other specified factors, subsequent encounter; I87.2 Venous insufficiency (chronic) (peripheral); E11.59 Type 2 diabetes mellitus with other circulatory complications | CPT/HCPCS: 82947; G0277 ==

== ENCOUNTER 2020-11-24 04:37 | Day surgery (SDC) | payer OTHER | END 2020-11-24 23:03 | disposition home or self-care (01) | LOC: HBO 04:37 | DX: E11.621 Type 2 diabetes mellitus with foot ulcer (principal); L97.419 Non-pressure chronic ulcer of right heel and midfoot with unspecified severity; L97.519 Non-pressure chronic ulcer of other part of right foot with unspecified severity; E11.59 Type 2 diabetes mellitus with other circulatory complications; E11.69 Type 2 diabetes mellitus with other specified complication; M86.679 Other chronic osteomyelitis, unspecified ankle and foot; I87.2 Venous insufficiency (chronic) (peripheral); S80.812D Abrasion, left lower leg, subsequent encounter; X58.XXXD Exposure to other specified factors, subsequent encounter | CPT/HCPCS: 82947; G0277 ==

== ENCOUNTER 2020-11-25 04:27 | Day surgery (SDC) | payer OTHER | END 2020-11-25 23:04 | disposition home or self-care (01) | LOC: HBO 04:27 | DX: E11.621 Type 2 diabetes mellitus with foot ulcer (principal); L97.509 Non-pressure chronic ulcer of other part of unspecified foot with unspecified severity; M86.679 Other chronic osteomyelitis, unspecified ankle and foot; S80.812D Abrasion, left lower leg, subsequent encounter; X58.XXXD Exposure to other specified factors, subsequent encounter; I87.2 Venous insufficiency (chronic) (peripheral); E11.59 Type 2 diabetes mellitus with other circulatory complications | CPT/HCPCS: 82947; G0277 ==

== ENCOUNTER 2020-11-26 00:26 | Day surgery (SDC) | payer OTHER | END 2020-11-26 22:48 | disposition home or self-care (01) | LOC: HBO 00:26 | DX: E11.69 Type 2 diabetes mellitus with other specified complication (principal); M86.679 Other chronic osteomyelitis, unspecified ankle and foot; E11.621 Type 2 diabetes mellitus with foot ulcer; L97.509 Non-pressure chronic ulcer of other part of unspecified foot with unspecified severity; E11.59 Type 2 diabetes mellitus with other circulatory complications; I87.2 Venous insufficiency (chronic) (peripheral); S80.812D Abrasion, left lower leg, subsequent encounter; X58.XXXD Exposure to other specified factors, subsequent encounter | CPT/HCPCS: 82947; G0277 ==

== ENCOUNTER 2020-11-27 01:48 | Day surgery (SDC) | payer OTHER | END 2020-11-27 12:00 | disposition home or self-care (01) | LOC: HBO 01:48 | DX: E11.621 Type 2 diabetes mellitus with foot ulcer (principal); L97.412 Non-pressure chronic ulcer of right heel and midfoot with fat layer exposed; E11.69 Type 2 diabetes mellitus with other specified complication; M86.679 Other chronic osteomyelitis, unspecified ankle and foot; S80.812D Abrasion, left lower leg, subsequent encounter; E11.59 Type 2 diabetes mellitus with other circulatory complications; I87.2 Venous insufficiency (chronic) (peripheral); Z91.040 Latex allergy status; Z88.8 Allergy status to other drugs, medicaments and biological substances; Z91.018 Allergy to other foods | CPT/HCPCS: 82947; G0277 ==

== ENCOUNTER 2020-11-30 00:28 | Day surgery (SDC) | payer OTHER | END 2020-11-30 23:37 | disposition home or self-care (01) | LOC: WOUND 00:28 | DX: E11.621 Type 2 diabetes mellitus with foot ulcer (principal); L97.416 Non-pressure chronic ulcer of right heel and midfoot with bone involvement without evidence of necrosis; L97.512 Non-pressure chronic ulcer of other part of right foot with fat layer exposed; L97.422 Non-pressure chronic ulcer of left heel and midfoot with fat layer exposed; E11.69 Type 2 diabetes mellitus with other specified complication; M86.671 Other chronic osteomyelitis, right ankle and foot; S80.812D Abrasion, left lower leg, subsequent encounter; E11.59 Type 2 diabetes mellitus with other circulatory complications; I87.2 Venous insufficiency (chronic) (peripheral); E03.9 Hypothyroidism, unspecified; E11.42 Type 2 diabetes mellitus with diabetic polyneuropathy; L84 Corns and callosities; Z91.040 Latex allergy status; Z88.8 Allergy status to other drugs, medicaments and biological substances; Z91.018 Allergy to other foods; Z87.891 Personal history of nicotine dependence; Z89.411 Acquired absence of right great toe | CPT/HCPCS: A9270 ==

== ENCOUNTER 2020-11-30 00:32 | Day surgery (SDC) | payer OTHER | END 2020-11-30 23:37 | disposition home or self-care (01) | LOC: HBO 00:32 | DX: E11.69 Type 2 diabetes mellitus with other specified complication (principal); M86.679 Other chronic osteomyelitis, unspecified ankle and foot; E11.621 Type 2 diabetes mellitus with foot ulcer; S80.812D Abrasion, left lower leg, subsequent encounter; E11.59 Type 2 diabetes mellitus with other circulatory complications; I87.2 Venous insufficiency (chronic) (peripheral); X58.XXXD Exposure to other specified factors, subsequent encounter | CPT/HCPCS: 82947; G0277 ==

== ENCOUNTER 2020-12-01 03:35 | Day surgery (SDC) | payer OTHER | END 2020-12-01 23:50 | disposition home or self-care (01) | LOC: HBO 03:35 | DX: E11.621 Type 2 diabetes mellitus with foot ulcer (principal); L97.509 Non-pressure chronic ulcer of other part of unspecified foot with unspecified severity; M86.679 Other chronic osteomyelitis, unspecified ankle and foot; L84 Corns and callosities; I87.2 Venous insufficiency (chronic) (peripheral); E11.59 Type 2 diabetes mellitus with other circulatory complications | CPT/HCPCS: 82947; G0277 ==

== ENCOUNTER 2020-12-02 02:53 | Day surgery (SDC) | payer OTHER | END 2020-12-02 23:33 | disposition home or self-care (01) | LOC: HBO 02:53 | DX: E11.621 Type 2 diabetes mellitus with foot ulcer (principal); L97.509 Non-pressure chronic ulcer of other part of unspecified foot with unspecified severity; M86.679 Other chronic osteomyelitis, unspecified ankle and foot; L84 Corns and callosities; I87.2 Venous insufficiency (chronic) (peripheral); E11.59 Type 2 diabetes mellitus with other circulatory complications | CPT/HCPCS: 82947; G0277 ==

== ENCOUNTER 2020-12-03 02:30 | Day surgery (SDC) | payer OTHER | END 2020-12-03 23:12 | disposition home or self-care (01) | LOC: HBO 02:30 | DX: E11.621 Type 2 diabetes mellitus with foot ulcer (principal); L97.413 Non-pressure chronic ulcer of right heel and midfoot with necrosis of muscle; E11.69 Type 2 diabetes mellitus with other specified complication; M86.679 Other chronic osteomyelitis, unspecified ankle and foot; L84 Corns and callosities; E11.59 Type 2 diabetes mellitus with other circulatory complications; I87.2 Venous insufficiency (chronic) (peripheral) | CPT/HCPCS: 82947; G0277 ==

== ENCOUNTER 2020-12-14 07:00 | Day surgery (SDC) | payer OTHER | END 2020-12-14 23:00 | disposition home or self-care (01) | LOC: WOUND 07:00 | DX: E11.621 Type 2 diabetes mellitus with foot ulcer (principal); L97.412 Non-pressure chronic ulcer of right heel and midfoot with fat layer exposed; L97.512 Non-pressure chronic ulcer of other part of right foot with fat layer exposed; L97.429 Non-pressure chronic ulcer of left heel and midfoot with unspecified severity; M86.679 Other chronic osteomyelitis, unspecified ankle and foot; E11.59 Type 2 diabetes mellitus with other circulatory complications; L84 Corns and callosities; I87.2 Venous insufficiency (chronic) (peripheral) | CPT/HCPCS: A9270; G0463 ==

== ENCOUNTER 2020-12-14 07:00 | Day surgery (SDC) | payer OTHER | END 2020-12-14 23:00 | disposition home or self-care (01) | LOC: HBO 07:00 | DX: E11.621 Type 2 diabetes mellitus with foot ulcer (principal); L97.509 Non-pressure chronic ulcer of other part of unspecified foot with unspecified severity; M86.679 Other chronic osteomyelitis, unspecified ankle and foot; L84 Corns and callosities; I87.2 Venous insufficiency (chronic) (peripheral); E11.59 Type 2 diabetes mellitus with other circulatory complications | CPT/HCPCS: 82947; G0277 ==

== ENCOUNTER 2020-12-15 00:56 | Day surgery (SDC) | payer OTHER | END 2020-12-15 23:28 | disposition home or self-care (01) | LOC: HBO 00:56 | DX: E11.621 Type 2 diabetes mellitus with foot ulcer (principal); L97.509 Non-pressure chronic ulcer of other part of unspecified foot with unspecified severity; M86.679 Other chronic osteomyelitis, unspecified ankle and foot; L84 Corns and callosities; I87.2 Venous insufficiency (chronic) (peripheral); E11.59 Type 2 diabetes mellitus with other circulatory complications | CPT/HCPCS: 82947; G0463 ==

== ENCOUNTER 2020-12-17 00:38 | Day surgery (SDC) | payer OTHER | END 2020-12-17 23:04 | disposition home or self-care (01) | LOC: HBO 00:38 | DX: E11.621 Type 2 diabetes mellitus with foot ulcer (principal); L97.519 Non-pressure chronic ulcer of other part of right foot with unspecified severity; M86.679 Other chronic osteomyelitis, unspecified ankle and foot; L84 Corns and callosities; I87.2 Venous insufficiency (chronic) (peripheral); E11.59 Type 2 diabetes mellitus with other circulatory complications | CPT/HCPCS: 82947; G0277 ==

== ENCOUNTER 2020-12-21 00:55 | Day surgery (SDC) | payer OTHER | END 2020-12-21 22:55 | disposition home or self-care (01) | LOC: WOUND 00:55 | DX: E11.621 Type 2 diabetes mellitus with foot ulcer (principal); L97.416 Non-pressure chronic ulcer of right heel and midfoot with bone involvement without evidence of necrosis; L97.512 Non-pressure chronic ulcer of other part of right foot with fat layer exposed; E11.69 Type 2 diabetes mellitus with other specified complication; E11.59 Type 2 diabetes mellitus with other circulatory complications; M86.679 Other chronic osteomyelitis, unspecified ankle and foot; E11.42 Type 2 diabetes mellitus with diabetic polyneuropathy; L84 Corns and callosities; S81.801A Unspecified open wound, right lower leg, initial encounter; X58.XXXA Exposure to other specified factors, initial encounter; I87.2 Venous insufficiency (chronic) (peripheral); B18.2 Chronic viral hepatitis C; E03.9 Hypothyroidism, unspecified; Z89.411 Acquired absence of right great toe; Z87.891 Personal history of nicotine dependence; Z91.040 Latex allergy status; Z88.8 Allergy status to other drugs, medicaments and biological substances; Z91.018 Allergy to other foods | CPT/HCPCS: A9270; G0463 ==

== ENCOUNTER 2020-12-23 21:32 | Emergency (ER) | payer OTHER ==
[~2020-12-23] VITALS: Ht 160 cm; Wt 86.2 kg
[2020-12-24 00:37] LABS: BASOPHILS ABSOLUTE AUTO 0.13 K/mm3 (0.00-0.23); BASOPHILS PERCENT AUTO 1 % (0-2); EOSINOPHILS ABSOLUTE AUTO 0.53 K/mm3 (0.00-0.68); EOSINOPHILS PERCENT AUTO 5 % (0-6); Hematocrit 29.7 % (33.0-51.0); Hemoglobin 9.6 g/dL (11.5-16.0); IMMATURE GRAN ABSOLUTE AUTO 0.03 K/mm3 (0.00-0.10); IMMATURE GRAN PERCENT AUTO 0 % (0-1); LYMPHOCYTES PERCENT AUTO 26 % (21-46); MONOCYTES ABSOLUTE AUTO 0.84 K/mm3 (0.16-1.47); MONOCYTES PERCENT AUTO 8 % (4-13); Mean Corpuscular HGB 30.4 pg (26.0-34.0); Mean Corpuscular HGB Conc 32.3 g/dL (31.5-36.5); Mean Corpuscular Volume 94 fL (80-100); Mean Platelet Volume 9.4 fL (9.1-12.4); NEUTROPHILS ABSOLUTE AUTO 6.58 K/mm3 (1.96-9.15); NEUTROPHILS PERCENT AUTO 60 % (41-73); Platelet Count 277 K/mm3 (150-400); RDW Coefficient Variation 13.3 % (11.7-14.2); Red Blood Cell Count 3.16 M/mm3 (3.80-5.20); White Blood Cell Count 10.91 K/mm3 (4.00-11.30)
[2020-12-24 00:55] LABS: Albumin, Blood 2.7 g/dL (3.4-5.0); Albumin/Globulin Ratio 0.6 (0.8-1.8); Bilirubin, Total 0.2 mg/dL (0.1-1.0); Bun/Creatinine Ratio 13.3 (12.0-20.0); Calcium, Blood 8.8 mg/dL (8.5-10.1); Creatinine, Blood 1.43 mg/dL (0.40-1.00); Globulin, Blood 4.6 g/dL (2.2-4.0); Potassium, Blood 4.3 mmol/L (3.5-5.5); Total Protein, Blood 7.3 g/dL (6.4-8.2)
[2020-12-30] MEDS ORDERED: LINE600 PO (09:33)
[2020-12-30] MEDS ORDERED: Bentyl20 MG PO (09:33)
[2020-12-30] MEDS ORDERED: POTA10T PO (09:34)
== END 2020-12-24 01:41 | disposition home or self-care (01) ==
LOC: ER 21:32
PROVIDERS: Physician Assistant
DX: L03.115 Cellulitis of right lower limb (principal); M86.60 Other chronic osteomyelitis, unspecified site; E11.9 Type 2 diabetes mellitus without complications; Z79.84 Long term (current) use of oral hypoglycemic drugs; Z91.02 Food additives allergy status; Z91.040 Latex allergy status; Z79.899 Other long term (current) drug therapy
CPT/HCPCS: 36415; 73630; 80053; 83605; 84145; 85025; 85651; 96374; 99283-25; A9270; J2405

== ENCOUNTER 2020-12-28 02:36 | Day surgery (SDC) | payer OTHER ==
[2020-12-30] MEDS ORDERED: LINE600 PO (09:33)
[2020-12-30] MEDS ORDERED: Bentyl20 MG PO (09:33)
[2020-12-30] MEDS ORDERED: POTA10T PO (09:34)
[2020-12-30] MEDS ORDERED: NOVOLOG FL100 UNIT/3 SC (15:21)
[2020-12-30] MEDS ORDERED: C COMPLEX1000 M1 PO (15:21)
[2020-12-30] MEDS ORDERED: LACT PO (15:25)
== END 2020-12-28 23:24 | disposition home or self-care (01) ==
LOC: WOUND 02:36
DX: E11.621 Type 2 diabetes mellitus with foot ulcer (principal); L97.416 Non-pressure chronic ulcer of right heel and midfoot with bone involvement without evidence of necrosis; L97.512 Non-pressure chronic ulcer of other part of right foot with fat layer exposed; M86.679 Other chronic osteomyelitis, unspecified ankle and foot; S81.801D Unspecified open wound, right lower leg, subsequent encounter; X58.XXXD Exposure to other specified factors, subsequent encounter; L84 Corns and callosities; I87.2 Venous insufficiency (chronic) (peripheral); E11.59 Type 2 diabetes mellitus with other circulatory complications; E03.9 Hypothyroidism, unspecified; Z87.891 Personal history of nicotine dependence
CPT/HCPCS: A9270; G0463

== ENCOUNTER 2021-01-01 07:47 | Inpatient (IN) | payer OTHER ==
[~2021-01-01] VITALS: Ht 160 cm; Wt 85.4 kg
[~2021-01-01 07:47] MED LIST changes: +Bentyl20 MG PO; +C COMPLEX1000 M1 PO; +LACT PO; +LINE600 PO; +NOVOLOG FL100 UNIT/3 SC
--- NOTE | 2021-01-01 08:55 | NUR ---
ASSUMED CARE OF PATIENT FROM CAROLANN Bronson RN. INFORMED THAT ACCESSING PT MEDIPORT FOR SURGERY IS OKAY PER DR. CACERES. KHADIJAH SPEAR OVER TO ACCESS MEDIPORT AT THIS TIME.
--- NOTE | 2021-01-01 09:48 | NUR ---
PT C/O PRESSURE AT MEDIPORT SITE. NGOZI CASTILLO RN INTO EVALUATE AND REACCESS MEDIPORT. PT TOLERATED WELL. PT NOW TO OR 4 AT THIS TIME TAKEN BY NIDA Romero RN.
--- NOTE | 2021-01-01 09:57 | NUR ---
PT C/O SITE BEING UNCOMFORTABLE, APPEARS SWOLLEN. LEI NEEDLE REMOVED.
--- NOTE | 2021-01-01 09:59 | NUR ---
ACCESSED MEDIPORT TO PT'S RIGHT CHEST. BLOOD RETURN NOTED. PT'S SITE IS TENDER AND SWOLLEN. PT REPORTS TASTING SALINE WHEN FLUSHED.
--- NOTE | 2021-01-01 11:01 | NUR ---
01/01/21 1101 Jenny Siddiqui SPECIMEN TO LAB AT 1059 (RIGHT LOWER EXTREMITY BELOW THE KNEE) Jyoti APODACA RN.
--- NOTE | 2021-01-01 13:58 | NUR ---
PATIENT CAME BACK FROM PACU AT 1310 TODAY 01/01/21. POD 0 RIGHT BKA SHE IS ALERT AND ORIENTED X4 AND IS VERY TEARFUL. VS ARE WNL AND IS ON 2L NC. PAIN IS MANAGED WITH IV DILAUDID. PATIENT'S RIGHT KNEE HAS A POST OP SOCK THAT IS C/D/I. ZEE DRAIN HAS RED OUTPUT IN THE BULB. BULB IS COMPRESSED. PATIENT DENIES ANY NUMBNESS OR TINGLING TO EXTREMITIES. PATIENTS FLUIDS ARE BEING GIVEN THROUGH HER METAPORT. SHE TOLERATED SMALL BITES OF CHEESE AT THIS TIME. SHE IS CURRENTLY LAYING IN BED WITH EYES CLOSED AND EVEN/EQUAL RESP. CALL LIGHT WITHIN REACH.
--- NOTE | 2021-01-01 20:25 | NUR ---
RECEIVED REPORT AND ASSUMED CARE OF PT. PT IS COMPLAINING OF PAIN, MEDICATED PER MAR. DISCUSSED PAIN MEDICATION AVAILABLE, ENCOURAGED PT TO CALL AND INFORM STAFF OF PAIN. PT STATES THAT SHE IS EMBARASSED ABOUT THE PAIN AND THAT SHE USUALLY HAS A HIGH PAIN TOLERANCE. EDUCATED ON NATURE OF SURGERY, NEUROPATHIC PAIN, AND PHANTOM PAIN. PT SOMEWHAT RECEPTIVE. ENCOURAGED PT TO CALL IF ORAL PAIN MEDICATION INEFFECTIVE. SHE DENIES ANY OTHER NEEDS AT THIS TIME. WCTM.
--- NOTE | 2021-01-01 22:30 | NUR ---
PT REPORTS INCREASING PAIN, DENIES ANY RELIEF WITH EITHER OF THE ORAL PAIN MEDICATIONS. PT CRYING, HYPERVENTILATING, CALLING DAUGHTER ASKING HER TO COME PICK PT UP FROM THE HOSPITAL. SHE WAS EDUCATED ON THE IMPORTANCE OF POST-OP CARE AND PAIN CONTROL. PT STATES SHE IS CERTAIN THAT THE INFECTION HAS SPREAD TO HER FEMUR AND THAT IS WHAT IS CAUSING THE PAIN. ON-CALL PHYSICIAN CONTACTED, NEW ORDER FOR IV DILAUDID. WILL MEDICATE PER AUG.
--- NOTE | 2021-01-02 06:24 | NUR ---
PT REFUSED PERIPHERAL BLOOD DRAW FOR AM LABS, REQUESTED THAT MEDIPORT BE USED. NO ORDER TO ACCESS OR DRAW FROM MEDIPORT. ON-CALL PHYSICIAN CONTACTED, NO ORDERS AT THIS TIME. WILL REQUEST DAY SHIFT OBTAIN ORDER FROM HOSPITALIST.
--- NOTE | 2021-01-02 06:50 | NUR ---
SHIFT SUMMARY: CORTES IS A&OX4. VSS, NO ACUTE EVENTS OVERNIGHT. SHE REPORTS ADEQUATE PAIN CONTROL WITH THE NORCO, ORAL DILAUDID, AND IV DILAUDID. CONTINUOUS PULSE OX IN PLACE, PT DID DESATURATE TO THE MID TO HIGH 80's AFTER ADMIN OF IV DILAUDID, PLACED ON 2 L VIA NC, O2 RECOVERED WITHIN FIVE MINUTES. STUMP SOCK IN PLACE AND ZEE DRAIN. SHE IS LYING QUIETLY IN BED WITH HER EYES CLOSED AND EVEN, UNLABORED RESPIRATIONS, AROUSES TO VOICE, CALL LIGHT IN REACH. WILL REPORT TO DAY SHIFT RN.
[2021-01-02 10:29] LABS: BASOPHILS ABSOLUTE AUTO 0.08 K/mm3 (0.00-0.23); BASOPHILS PERCENT AUTO 1 % (0-2); EOSINOPHILS ABSOLUTE AUTO 0.44 K/mm3 (0.00-0.68); EOSINOPHILS PERCENT AUTO 5 % (0-6); Hematocrit 22.7 % (33.0-51.0); Hemoglobin 7.6 g/dL (11.5-16.0); IMMATURE GRAN ABSOLUTE AUTO 0.03 K/mm3 (0.00-0.10); IMMATURE GRAN PERCENT AUTO 0 % (0-1); LYMPHOCYTES ABSOLUTE AUTO 1.73 K/mm3 (0.84-5.20); LYMPHOCYTES PERCENT AUTO 19 % (21-46); MONOCYTES ABSOLUTE AUTO 0.98 K/mm3 (0.16-1.47); MONOCYTES PERCENT AUTO 11 % (4-13); Mean Corpuscular HGB 30.8 pg (26.0-34.0); Mean Corpuscular HGB Conc 33.5 g/dL (31.5-36.5); Mean Corpuscular Volume 92 fL (80-100); Mean Platelet Volume 10.1 fL (9.1-12.4); NEUTROPHILS ABSOLUTE AUTO 5.65 K/mm3 (1.96-9.15); NEUTROPHILS PERCENT AUTO 64 % (41-73); Platelet Count 165 K/mm3 (150-400); RDW Standard Deviation 44.2 fL (35.1-46.3); Red Blood Cell Count 2.47 M/mm3 (3.80-5.20); White Blood Cell Count 8.91 K/mm3 (4.00-11.30)
[2021-01-02 10:48] LABS: Albumin, Blood 2.4 g/dL (3.4-5.0); Albumin/Globulin Ratio 0.6 (0.8-1.8); Bilirubin, Total 0.3 mg/dL (0.1-1.0); Bun/Creatinine Ratio 18.5 (12.0-20.0); Calcium, Blood 7.6 mg/dL (8.5-10.1); Creatinine, Blood 1.3 mg/dL (0.40-1.00); Globulin, Blood 3.9 g/dL (2.2-4.0); Magnesium, Blood 1.4 mg/dL (1.6-2.4); Potassium, Blood 3.8 mmol/L (3.5-5.5); Total Protein, Blood 6.3 g/dL (6.4-8.2)
--- NOTE | 2021-01-02 11:20 | NUR ---
SPOKE WITH DR LEON. ORDER GIVEN FOR IV MAGNESIUM. PROVIDER OKAY WITH DRAWING LABS FROM MEDIPROT.
--- NOTE | 2021-01-02 15:07 | NUR ---
ZEE DRAIN REMOVED BY PHYSICIAN.
--- NOTE | 2021-01-02 16:36 | NUR ---
SHIFT SUMMARY PT HAS BEEN A/O X4 TODAY. SHE HAS BEEN DROWSY T/O THE DAY, BUT STATES SHE IS VERY TIRED FROM NOT HAVING SLEPT WELL RECENTLY. PAIN HAS BEEN MANAGED PER EMAR WITH PO PAIN MEDS AND IV DILAUDED ONLY FOR BREAKTRHOUGH PAIN. PT IS TOLERATING PO INTAKE AND VOIDING. ZEE DRAIN WAS REMOVED FROM R LEG TODAY. STUMP SOCK IN PLACE, CDI. NO ACUTE CHANGES THIS SHIFT. PT RESTING IN BED AT THIS TIME.
--- NOTE | 2021-01-02 19:30 | NUR ---
RECEIVED REPORT AND ASSUMED CARE OF PT. SHE IS LYING QUIETLY IN BED WITH EVEN, UNLABORED RESPIRATIONS. SHE AROUSES TO VOICE, BUT FALLS ASLEEP QUICKLY, ANSWERING QUESTIONS APPROPRIATELY. REPORTED NAUSEA, HOSPITALIST CONTACTED AND NEW ORDER OBTAINED FOR ZOFRAN. SHE REQUESTED ITEMS TO BRUSH HER TEETH, BUT FELL ASLEEP BEFORE USING THE PROVIDED ITEMS. CONTINUOUS PULSE OX IN PLACE. WCTM.
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
[2021-01-03 04:08] LABS: Base Excess Venous -3.7 mmol/L; Bicarbonate Venous 21.5 mmol/L (24.0-30.0); PCO2 Venous 38.8 mmHg (38-42); PO2 Venous 60.1 mmHg (38-42); pH Blood Venous 7.36 (7.34-7.37)
[2021-01-03 04:09] LABS: Hematocrit 22.4 % (33.0-51.0); Hemoglobin 7.6 g/dL (11.5-16.0); Mean Corpuscular HGB 30.6 pg (26.0-34.0); Mean Corpuscular HGB Conc 33.9 g/dL (31.5-36.5); Mean Corpuscular Volume 90 fL (80-100); Mean Platelet Volume 9.8 fL (9.1-12.4); Platelet Count 167 K/mm3 (150-400); RDW Coefficient Variation 12.8 % (11.7-14.2); RDW Standard Deviation 42.4 fL (35.1-46.3); Red Blood Cell Count 2.48 M/mm3 (3.80-5.20); White Blood Cell Count 12.75 K/mm3 (4.00-11.30)
[2021-01-03 04:30] LABS: Magnesium, Blood 1.5 mg/dL (1.6-2.4); Percent Saturation 9.5 % (15.0-50.0)
[2021-01-03 04:31] LABS: Albumin, Blood 2.3 g/dL (3.4-5.0); Albumin/Globulin Ratio 0.5 (0.8-1.8); Bilirubin, Total 0.3 mg/dL (0.1-1.0); Bun/Creatinine Ratio 14.7 (12.0-20.0); Calcium, Blood 7.6 mg/dL (8.5-10.1); Creatinine, Blood 1.02 mg/dL (0.40-1.00); Globulin, Blood 4.3 g/dL (2.2-4.0); Potassium, Blood 3.4 mmol/L (3.5-5.5); Total Protein, Blood 6.6 g/dL (6.4-8.2)
--- NOTE | 2021-01-03 06:28 | NUR ---
SHIFT SUMMARY: CORTES AROUSES TO VOICE OR TOUCH. ON-CALL PHYSICIAN CONTACTED AND AMMONIA LEVEL AND VBG ORDERED. PT HAS VOMITED X3 THIS SHIFT, SMALL AMOUNTS AND THE FIRST TWO CONTAINING UNMASTICATED FOODS. SHE DENIES HX OF KIDNEY STONES OR INFECTIONS. SHE CONTINUES TO COMPLAIN OF LEFT FLANK PAIN WHICH RADIATES TO THE ANTERIOR ASPECT OF HER ABDOMEN. SHE HAS URINATED WITHOUT DIFFICULTY THIS SHIFT. SHE HAS DENIED USE OF ANY SUBSTANCE THAT WOULD CAUSE HER TO GO THROUGH WITHDRAWAL LIKE SYMPTOMS. SHE IS ABLE TO MAKE HER NEEDS KNOWN. SHE IS LYING IN BED WITH THE CALL LIGHT IN REACH. WILL REPORT TO DAY SHIFT RN.
[2021-01-03 10:25] LABS: Source, Urine Clean Catch
[2021-01-03 10:28] LABS: Appearance, Urine Hazy (Clear); Bilirubin, Urine Neg (Neg); Blood, Urine 4+ (Neg); Color, Urine Yellow (P-Yellow); Glucose Qualitative, Urine 3+ (Neg); Ketones, Urine Neg (Neg); Leukocyte Esterase, Urine Neg (Neg); Nitrite, Urine Neg (Neg); Protein, Urine 4+ (Neg); Specific Gravity, Urine 1.015 (1.003-1.022); Urobilinogen, Urine NORM (Normal)
[2021-01-03 11:15] LABS: Bacteria Few /hpf; Squamous Epithelial Cells Not Seen /hpf (Few); White Blood Cells, Urine Rare /hpf (0-5); Yeast/Fungi Urine Few /hpf
[2021-01-03 11:16] LABS: Other Crystals Many /hpf
[2021-01-03 11:45] LABS: Albumin, Blood 2.3 g/dL (3.4-5.0); Albumin/Globulin Ratio 0.5 (0.8-1.8); Bilirubin, Total 0.3 mg/dL (0.1-1.0); Bun/Creatinine Ratio 12.9 (12.0-20.0); Calcium, Blood 7.9 mg/dL (8.5-10.1); Creatinine, Blood 1.01 mg/dL (0.40-1.00); Globulin, Blood 4.6 g/dL (2.2-4.0); Potassium, Blood 3.3 mmol/L (3.5-5.5); Total Protein, Blood 6.9 g/dL (6.4-8.2)
--- NOTE | 2021-01-03 17:56 | NUR ---
SHIFT SUMMARY PATIENT ALTERNATELY SLEEPING OR VOMITING THROUGHOUT SHIFT. DIFFICULT TO AROUSE WHEN SLEEPING. HOWEVER, RESPONDS APPROPRIATELY WHEN AWAKE DURING EPISODES OF VOMITING. MEDICATED FOR NAUSEA PER EMAR. RIGHT BKA WNL. DRESSING C/D/I. DR WANG TO CHANGE DRESSING TOMORROW 01/04/21. SBA WITH FWW TO BATHROOM. MULTIPLE INC BMS IN PULL UPS AND BED THROUGHOUT SHIFT. MEDICATED ONCE FOR PAIN, SEE EMAR. FLUIDS AND ABX RUNNING THROUGH MEDIPORT. INSULIN PER SS, SEE EMAR. PATIENT WILL LIKELY NEED SNF PLACEMENT UPON DISCHARGE.
--- NOTE | 2021-01-03 19:54 | NUR ---
RECEIVED REPORT AND ASSUMED CARE OF PT. SHE WAS LYING QUIETLY IN BED THEN SAT UP AND REQUESTED AN EMESIS BAG. SHE LAID BACK DOWN AND CLOSED HER EYES IMMEDIATELY AFTER VOMITING. EMESIS LIQUID GREEN. WILL MEDICATE PER AUG.
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
--- NOTE | 2021-01-04 07:00 | NUR ---
SHIFT SUMMARY: CORTES AROUSES TO VOICE AND RESPONDS APPROPRIATELY. VSS, MAINTAINING SATS ORA. SHE USES THE CALL LIGHT APPROPRIATELY. SHE HAS RESTED QUIETLY BETWEEN TRIPS TO THE BATHROOM, ONE PERSON ASSIST WITH THE FWW AND GAIT BELT. IV FLUIDS INFUSING TO MEDIPORT IN RU CHEST WALL. STUMP SOCK C/D&I. ATTENDS IN PLACE. DAUGHTER UPDATED ON PT BY PHONE THIS AM. SHE IS LYING IN BED WITH THE CALL LIGHT IN REACH. WILL REPORT TO DAY SHIFT RN.
[2021-01-04 11:16] LABS: BASOPHILS ABSOLUTE AUTO 0.09 K/mm3 (0.00-0.23); BASOPHILS PERCENT AUTO 0 % (0-2); EOSINOPHILS PERCENT AUTO 1 % (0-6); Hematocrit 21.9 % (33.0-51.0); Hemoglobin 7.5 g/dL (11.5-16.0); IMMATURE GRAN ABSOLUTE AUTO 0.36 K/mm3 (0.00-0.10); IMMATURE GRAN PERCENT AUTO 2 % (0-1); LYMPHOCYTES ABSOLUTE AUTO 2.52 K/mm3 (0.84-5.20); LYMPHOCYTES PERCENT AUTO 12 % (21-46); MONOCYTES ABSOLUTE AUTO 2.95 K/mm3 (0.16-1.47); MONOCYTES PERCENT AUTO 14 % (4-13); Mean Corpuscular HGB 30.2 pg (26.0-34.0); Mean Corpuscular HGB Conc 34.2 g/dL (31.5-36.5); Mean Corpuscular Volume 88 fL (80-100); Mean Platelet Volume 9.9 fL (9.1-12.4); NEUTROPHILS ABSOLUTE AUTO 15.19 K/mm3 (1.96-9.15); NEUTROPHILS PERCENT AUTO 72 % (41-73); NRBC ABSOLUTE 0.02 K/mm3 (0.00-0.02); NRBC Auto 0.1 /100 WBC (0.0-0.2); Platelet Count 197 K/mm3 (150-400); RDW Coefficient Variation 12.6 % (11.7-14.2); RDW Standard Deviation 40.6 fL (35.1-46.3); Red Blood Cell Count 2.48 M/mm3 (3.80-5.20); White Blood Cell Count 21.21 K/mm3 (4.00-11.30)
[2021-01-04 11:40] LABS: Alanine Aminotransfer (ALT/SGP 57 U/L (12-78); Albumin, Blood 2.1 g/dL (3.4-5.0); Albumin/Globulin Ratio 0.5 (0.8-1.8); Alk Phos 173 U/L (50-136); Anion Gap 4 mmol/L (6-16); Aspartate Aminotrans (AST/SGOT 35 U/L (12-37); Bilirubin, Total 0.2 mg/dL (0.1-1.0); Blood Urea Nitrogen 12 mg/dL (8-24); Bun/Creatinine Ratio 12.3 (12.0-20.0); CO2, Blood 27 mmol/L (21-32); Calcium, Blood 7.9 mg/dL (8.5-10.1); Chloride, Blood 105 mmol/L (98-108); Creatinine, Blood 0.97 mg/dL (0.40-1.00); Globulin, Blood 4.2 g/dL (2.2-4.0); Glomerular Filtration Rate >60 (60-); Glucose, Blood 213 mg/dL (70-99); Potassium, Blood 3.5 mmol/L (3.5-5.5); Sodium, Blood 136 mmol/L (136-145); Total Protein, Blood 6.3 g/dL (6.4-8.2)
--- NOTE | 2021-01-04 13:43 | NUR ---
OCCUPATIONAL THERAPY IN TO SEE PT.
--- NOTE | 2021-01-04 14:03 | NUR ---
DR WANG IN TO CHANGED PT DRESSING. RN CHANGED DRESSING TO BOTTOM OF L FOOT.
[2021-01-04 15:14] LABS: Source, Urine Clean Catch
[2021-01-04 15:42] LABS: Bilirubin, Urine Neg (Neg); Blood, Urine 4+ (Neg); Glucose Qualitative, Urine 3+ (Neg); Ketones, Urine Neg (Neg); Leukocyte Esterase, Urine Neg (Neg); Nitrite, Urine Neg (Neg); Protein, Urine 4+ (Neg); Specific Gravity, Urine 1.015 (1.003-1.022); Urobilinogen, Urine NORM (Normal)
[2021-01-04 16:20] LABS: Appearance, Urine Hazy (Clear); Color, Urine Yellow (P-Yellow)
[2021-01-04 16:26] LABS: White Blood Cells, Urine 0-2 /hpf (0-5)
[2021-01-04 16:27] LABS: Bacteria Few /hpf; Squamous Epithelial Cells Mod /hpf (Few)
--- NOTE | 2021-01-04 16:33 | NUR ---
DAUGHTER AT BEDSIDE.
--- NOTE | 2021-01-04 18:39 | NUR ---
SUMMARY PT HAS BEEN SLEEPING T/O MOST OF THE SHIFT. MEDICATED PER ORDERS FOR PAIN. WORKED W/THERAPY. ORDERS THIS EVENING FOR ALBUMIN AND PRBCS. RUNNING ALBUMIN PER ORDERS AT THIS TIME. CALL LIGHT IN REACH. BED ALARM ON.
--- NOTE | 2021-01-05 06:29 | NUR ---
SHIFT SUMMARY POD4 R BKA WITH DR. WANG. PT REPORTS MIN TO MOD PAIN T/O SHIFT. PAIN MANAGED WITH PO PAIN MEDS (DILAUDID AND NORCO). BUT PT SLEPT T/O SHIFT, SHE WAS COMFORTABLE, NOT ANXIOUS. CALM AND ABLE TO GET UP WITH MIN ASSIST. BLOOD TRANSFUSION WAS ORDERED FOR CONSISTENT LOW HGB ON 7.5. 1 UNIT OF PRBC GIVEN LAST NIGHT. TOLERATING IT WELL. VITALS HAS BEEN STABLE. PT DENIES ANY SIDE EFFECTS/ALLERGIC REACTION. PT WAS SOME MILD FEVER, BUT RESOLVE WITH COOLER ROOM TEMP. RLE WITH BRYANT WRAP CHANGED BY DR. WANG YESTERDAY. VOIDING WELL WITHOUT ANY ISSUES. CALLED DAUGHTER LAST NIGHT FOR AN UPDATED. PT IS WAITING FOR PLACEMENT, DAUGHTER WANTS TO BE UPDATED ABOUT FUTURE PLANS. CALL LIGHT WITHIN REACH. WILL PROVIDER REPORT TO ONCOMING NURSE.
[2021-01-05 10:54] LABS: BASOPHILS ABSOLUTE AUTO 0.09 K/mm3 (0.00-0.23); BASOPHILS PERCENT AUTO 0 % (0-2); EOSINOPHILS ABSOLUTE AUTO 0.19 K/mm3 (0.00-0.68); EOSINOPHILS PERCENT AUTO 1 % (0-6); Hematocrit 23.8 % (33.0-51.0); Hemoglobin 8.2 g/dL (11.5-16.0); IMMATURE GRAN ABSOLUTE AUTO 0.47 K/mm3 (0.00-0.10); IMMATURE GRAN PERCENT AUTO 2 % (0-1); LYMPHOCYTES ABSOLUTE AUTO 2.54 K/mm3 (0.84-5.20); LYMPHOCYTES PERCENT AUTO 12 % (21-46); MONOCYTES ABSOLUTE AUTO 2.73 K/mm3 (0.16-1.47); MONOCYTES PERCENT AUTO 13 % (4-13); Mean Corpuscular HGB 29.7 pg (26.0-34.0); Mean Corpuscular HGB Conc 34.5 g/dL (31.5-36.5); Mean Corpuscular Volume 86 fL (80-100); Mean Platelet Volume 10.2 fL (9.1-12.4); NEUTROPHILS ABSOLUTE AUTO 14.82 K/mm3 (1.96-9.15); NEUTROPHILS PERCENT AUTO 71 % (41-73); Platelet Count 214 K/mm3 (150-400); RDW Coefficient Variation 14.6 % (11.7-14.2); RDW Standard Deviation 45.4 fL (35.1-46.3); Red Blood Cell Count 2.76 M/mm3 (3.80-5.20); White Blood Cell Count 20.84 K/mm3 (4.00-11.30)
[2021-01-05 12:14] LABS: Albumin, Blood 2.1 g/dL (3.4-5.0); Albumin/Globulin Ratio 0.5 (0.8-1.8); Bilirubin, Total 0.3 mg/dL (0.1-1.0); Bun/Creatinine Ratio 13.5 (12.0-20.0); Calcium, Blood 7.7 mg/dL (8.5-10.1); Creatinine, Blood 1.04 mg/dL (0.40-1.00); Potassium, Blood 3.4 mmol/L (3.5-5.5); Total Protein, Blood 6.1 g/dL (6.4-8.2)
--- NOTE | 2021-01-05 14:22 | NUR ---
MEDICATED PER ORDERS FOR NAUSEA. PT STATED FELT LIKE COULD TOLERATE TAKING GABAPENTIN; ADMINISTERED PER ORDERS. VISITOR AT BEDSIDE. CALL LIGHT IN REACH. RESTING W/LIGHTS OFF.
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
--- NOTE | 2021-01-06 06:25 | NUR ---
SHIFT SUMMARY NO ACUTE CHANGES OVERNIGHT. PT SLEPT MOST OF THE NIGHT. PT REPORTS PAIN ON THE RIGHT SIDE CHEST, KPAD WAS PLACED AND PAIN IMPROVED. PT ALSO REPORTS PAIN ON RLE. PAIN MANAGED WITH NORCO AND DILAUDID PO. TOLERATING PO INTAKE DENIES N/V. VSS. AFEBRILE. VOIDING IN THE BATHROOM WITH 1 MIN ASSIST. FLUIDS INFUSING. CALL LIGHT WITHIN REACH. WILL PROVIDE REPORT TO ONCOMING NURSE.
[2021-01-06 11:40] LABS: BASOPHILS ABSOLUTE AUTO 0.11 K/mm3 (0.00-0.23); BASOPHILS PERCENT AUTO 1 % (0-2); EOSINOPHILS ABSOLUTE AUTO 0.32 K/mm3 (0.00-0.68); EOSINOPHILS PERCENT AUTO 2 % (0-6); Hematocrit 24.1 % (33.0-51.0); Hemoglobin 8.3 g/dL (11.5-16.0); IMMATURE GRAN ABSOLUTE AUTO 0.37 K/mm3 (0.00-0.10); IMMATURE GRAN PERCENT AUTO 2 % (0-1); LYMPHOCYTES PERCENT AUTO 14 % (21-46); MONOCYTES ABSOLUTE AUTO 1.96 K/mm3 (0.16-1.47); MONOCYTES PERCENT AUTO 10 % (4-13); Mean Corpuscular HGB 29.7 pg (26.0-34.0); Mean Corpuscular HGB Conc 34.4 g/dL (31.5-36.5); Mean Corpuscular Volume 86 fL (80-100); Mean Platelet Volume 9.8 fL (9.1-12.4); NEUTROPHILS ABSOLUTE AUTO 13.75 K/mm3 (1.96-9.15); NEUTROPHILS PERCENT AUTO 72 % (41-73); Platelet Count 242 K/mm3 (150-400); RDW Coefficient Variation 14.6 % (11.7-14.2); RDW Standard Deviation 45.7 fL (35.1-46.3); Red Blood Cell Count 2.79 M/mm3 (3.80-5.20); White Blood Cell Count 19.21 K/mm3 (4.00-11.30)
[2021-01-06 12:06] LABS: Alanine Aminotransfer (ALT/SGP 37 U/L (12-78); Albumin, Blood 1.9 g/dL (3.4-5.0); Albumin/Globulin Ratio 0.5 (0.8-1.8); Alk Phos 157 U/L (50-136); Anion Gap 6 mmol/L (6-16); Aspartate Aminotrans (AST/SGOT 35 U/L (12-37); Bilirubin, Total 0.3 mg/dL (0.1-1.0); Blood Urea Nitrogen 15 mg/dL (8-24); Bun/Creatinine Ratio 16.4 (12.0-20.0); CO2, Blood 24 mmol/L (21-32); Calcium, Blood 7.8 mg/dL (8.5-10.1); Chloride, Blood 107 mmol/L (98-108); Creatinine, Blood 0.91 mg/dL (0.40-1.00); Globulin, Blood 4.1 g/dL (2.2-4.0); Glomerular Filtration Rate >60 (60-); Glucose, Blood 148 mg/dL (70-99); Potassium, Blood 3.8 mmol/L (3.5-5.5); Sodium, Blood 137 mmol/L (136-145)
[2021-01-06 14:06] LABS: SARS-Cov-2 (COVID-19) PCR, MMC NEGATIVE (NEGATIVE)
--- NOTE | 2021-01-06 17:05 | NUR ---
SHIFT SUMMARY POD 5 R BKA PAIN MANAGED PER EMAR WITH PO PAIN MEDS. PT TRANSFERS WELL WITH FWW AND GB. NEEDS MINIMAL ASSISTANCE. STUMP SOCK CDI. PT HAS SLEPT DURING MOST OF SHIFT. TOLERATING PO WELL, VOIDING WELL. PLAN IS TO DC TO [facility], CURRENTLY AWAITING TRANSPORT. PACKET DONE AND READY.
--- NOTE | 2021-01-06 18:17 | NUR ---
report called to valeri wilkins left with [facility] at 1810. all belongings sent with patient. daughter took other belongings this afternoon. hard copy of script placed in packet sent with [facility]. dressing was cdi and mediport deaccessed prior to discharge.
== END 2021-01-06 18:15 | DRG 616 ==
LOC: SURS 07:47 → PRE IP 09:15 → SURS 13:05
PROVIDERS: Family Medicine; Hospitalist; Internal Medicine; ADMIT Orthopaedic Surgery
PROC: 0Y6H0Z3 Detachment at Right Lower Leg, Low, Open Approach (ICD-10-PCS; principal; 2021-01-01 09:15)
DX: E11.69 Type 2 diabetes mellitus with other specified complication (principal); L89.613 Pressure ulcer of right heel, stage 3; M86.8X7 Other osteomyelitis, ankle and foot; E03.9 Hypothyroidism, unspecified; K74.60 Unspecified cirrhosis of liver; G47.33 Obstructive sleep apnea (adult) (pediatric); E11.22 Type 2 diabetes mellitus with diabetic chronic kidney disease; Z20.822 Contact with and (suspected) exposure to COVID-19; D63.1 Anemia in chronic kidney disease; E87.6 Hypokalemia; E88.09 Other disorders of plasma-protein metabolism, not elsewhere classified; I12.9 Hypertensive chronic kidney disease with stage 1 through stage 4 chronic kidney disease, or unspecified chronic kidney disease; E11.40 Type 2 diabetes mellitus with diabetic neuropathy, unspecified; N18.9 Chronic kidney disease, unspecified; Z90.49 Acquired absence of other specified parts of digestive tract; Z90.710 Acquired absence of both cervix and uterus; Z98.890 Other specified postprocedural states; Z88.8 Allergy status to other drugs, medicaments and biological substances; Z91.040 Latex allergy status; Z79.4 Long term (current) use of insulin; Z79.899 Other long term (current) drug therapy; Z87.891 Personal history of nicotine dependence
CPT/HCPCS: 36415; 36430; 36561; 71045; 76937; 80053; 81001; 82140; 82728; 82803; 82947; 83540; 83550; 83735; 85025; 85027; 86850; 86900; 86901; 86923; 88307; 94762; 97110; 97162; 97166; 97535; 99152; 99153; A9270; C1788; J0690; J1170; J1642; J1644; J2250; J2405; J2704; J2765; J3010; J3370; J3475; J3480; J7030; J7040; J7120; P9016; P9046; U0004

== ENCOUNTER → 2021-01-22 | Outpatient (CLI) | payer OTHER ==
[2021-01-22 09:53] LABS: BASOPHILS ABSOLUTE AUTO 0.11 K/mm3 (0.00-0.23); BASOPHILS PERCENT AUTO 1 % (0-2); EOSINOPHILS ABSOLUTE AUTO 0.57 K/mm3 (0.00-0.68); EOSINOPHILS PERCENT AUTO 6 % (0-6); Hematocrit 24.7 % (33.0-51.0); Hemoglobin 7.9 g/dL (11.5-16.0); IMMATURE GRAN ABSOLUTE AUTO 0.03 K/mm3 (0.00-0.10); IMMATURE GRAN PERCENT AUTO 0 % (0-1); LYMPHOCYTES ABSOLUTE AUTO 3.18 K/mm3 (0.84-5.20); LYMPHOCYTES PERCENT AUTO 32 % (21-46); MONOCYTES ABSOLUTE AUTO 0.71 K/mm3 (0.16-1.47); MONOCYTES PERCENT AUTO 7 % (4-13); Mean Corpuscular Volume 91 fL (80-100); Mean Platelet Volume 10.3 fL (9.1-12.4); NEUTROPHILS ABSOLUTE AUTO 5.26 K/mm3 (1.96-9.15); NEUTROPHILS PERCENT AUTO 53 % (41-73); Platelet Count 290 K/mm3 (150-400); RDW Coefficient Variation 15.4 % (11.7-14.2); RDW Standard Deviation 50.8 fL (35.1-46.3); Red Blood Cell Count 2.72 M/mm3 (3.80-5.20); White Blood Cell Count 9.86 K/mm3 (4.00-11.30)
[2021-01-22 10:41] LABS: Anion Gap 6 mmol/L (6-16); Blood Urea Nitrogen 19 mg/dL (8-24); Bun/Creatinine Ratio 13.7 (12.0-20.0); CHOL/HDL RATIO 3.2; CO2, Blood 24 mmol/L (21-32); Chloride, Blood 109 mmol/L (98-108); Cholesterol 188 mg/dL (50-200); Creatinine, Blood 1.39 mg/dL (0.40-1.00); Glomerular Filtration Rate 40 (60-); Glucose, Blood 90 mg/dL (70-99); HDL Cholesterol 58 mg/dL (>39); LDL/HDL RATIO 1.7; Low Density Lipoprotein Chol 98 mg/dL (0-110); Sodium, Blood 139 mmol/L (136-145); Triglycerides 158 mg/dL (30-160); Very Low Density Lipoprot Chol 32 mg/dL (6-32)
== END | disposition home or self-care (01) ==
LOC: LAB RH 07:53 → EDSTATUS 09:29
PROVIDERS: Internal Medicine
DX: E11.22 Type 2 diabetes mellitus with diabetic chronic kidney disease (principal); N18.9 Chronic kidney disease, unspecified; D63.1 Anemia in chronic kidney disease
CPT/HCPCS: 80048; 80061; 85025

== ENCOUNTER → 2021-03-19 | Outpatient (CLI) | payer OTHER ==
[2021-03-20 07:15] LABS: Candida species (DNA Probe) Negative (NEGATIVE); G. vaginalis (DNA Probe) Negative (NEGATIVE); T. vaginalis (DNA Probe) Negative (NEGATIVE)
== END | disposition home or self-care (01) ==
LOC: LAB SHORT 18:01 → LAB 18:01
PROVIDERS: Family Medicine
DX: N89.8 Other specified noninflammatory disorders of vagina (principal)
CPT/HCPCS: 87480; 87510; 87660

== ENCOUNTER 2021-06-21 03:04 | Day surgery (SDC) | payer OTHER ==
[~2021-06-21 03:04] MED LIST changes: +BP MED; +PREG100 PO
[2021-06-21 12:55] LABS: Albumin, Blood 2.9 g/dL (3.4-5.0); Albumin/Globulin Ratio 0.8 (0.8-1.8); Bilirubin, Total 0.3 mg/dL (0.1-1.0); Bun/Creatinine Ratio 14.5 (12.0-20.0); Calcium, Blood 8.1 mg/dL (8.5-10.1); Creatinine, Blood 1.24 mg/dL (0.40-1.00); Globulin, Blood 3.5 g/dL (2.2-4.0); Potassium, Blood 3.5 mmol/L (3.5-5.5); Total Protein, Blood 6.4 g/dL (6.4-8.2)
== END 2021-06-21 10:50 | disposition home or self-care (01) ==
LOC: ATC 03:04
PROVIDERS: Family Medicine
DX: E11.42 Type 2 diabetes mellitus with diabetic polyneuropathy (principal); E11.621 Type 2 diabetes mellitus with foot ulcer; L97.509 Non-pressure chronic ulcer of other part of unspecified foot with unspecified severity; E11.51 Type 2 diabetes mellitus with diabetic peripheral angiopathy without gangrene; E03.9 Hypothyroidism, unspecified; G47.33 Obstructive sleep apnea (adult) (pediatric); E55.9 Vitamin D deficiency, unspecified; Z79.4 Long term (current) use of insulin; Z88.8 Allergy status to other drugs, medicaments and biological substances; Z91.040 Latex allergy status; Z87.891 Personal history of nicotine dependence; Z89.511 Acquired absence of right leg below knee
CPT/HCPCS: 80053; 82306; 83036; J1642

== ENCOUNTER 2021-10-24 00:53 | Day surgery (SDC) | payer OTHER | END 2021-10-24 12:00 | disposition home or self-care (01) | LOC: ATC 00:53 | DX: M79.644 Pain in right finger(s) (principal); R60.0 Localized edema; I10 Essential (primary) hypertension; E11.42 Type 2 diabetes mellitus with diabetic polyneuropathy; Z79.4 Long term (current) use of insulin; E11.621 Type 2 diabetes mellitus with foot ulcer; E11.51 Type 2 diabetes mellitus with diabetic peripheral angiopathy without gangrene; E03.9 Hypothyroidism, unspecified; Z88.8 Allergy status to other drugs, medicaments and biological substances; Z91.040 Latex allergy status; Z79.899 Other long term (current) drug therapy | CPT/HCPCS: J1642 ==

== ENCOUNTER 2022-03-04 17:07 | Inpatient (IN) | payer OTHER ==
[~2022-03-04] VITALS: Ht 160 cm; Wt 89.0 kg
[~2022-03-04 17:07] MED LIST changes: -Cephalexin250 MG/5 M PO; -HYDRA25 PO; -LOSARTAN POTAS100 MG PO; -NYSTATIN15 GM TOP; -SULTRIDS PO
[2022-03-04 22:01] LABS: U Amphetamine Screen DETECTED; U Barbituate Screen Not Detected; U Benzodiazapine Screen Not Detected; U Buprenorphine Screen Not Detected; U Cannabinoids Screen Not Detected; U Cocaine Screen Not Detected; U Methadone Screen Not Detected; U Methamphetamine Screen DETECTED; U Opiates Screen Not Detected; U Oxycodone Screen Not Detected; U Phencyclidine Screen Not Detected; U Propoxyphene Screen Not Detected
[2022-03-05] MEDS ORDERED: LOSARTAN POTAS100 MG PO (02:29)
[2022-03-05] MEDS ORDERED: OMEP20ER PO (02:29)
[2022-03-05] MEDS ORDERED: HYDRA25 PO (02:30)
[2022-03-05] MEDS ORDERED: NYSTATIN15 GM TOP (02:31)
--- NOTE | 2022-03-05 02:39 | NUR ---
ADMIT NOTE PATIENT ARRIVED TO ROOM 327 AT 0045 VIA STRETCHER. SHE IS ALERT AND ORIENTED X4. IS SLIGHTLY IMPULSIVE, WAS ABLE TO ROLL FROM STRETCHER TO BED. BED ALARM TURNED ON DUE TO RECENT HX OF FALLS. WOUNDS CLEANED, PHOTOGRAPHED, AND DRESSED. PICTURES PLACED ON CHART.
[2022-03-05 05:14] LABS: BASOPHILS ABSOLUTE AUTO 0.06 K/mm3 (0.00-0.23); BASOPHILS PERCENT AUTO 1 % (0-2); EOSINOPHILS ABSOLUTE AUTO 0.29 K/mm3 (0.00-0.68); EOSINOPHILS PERCENT AUTO 3 % (0-6); Hematocrit 26.8 % (33.0-51.0); Hemoglobin 9.1 g/dL (11.5-16.0); IMMATURE GRAN ABSOLUTE AUTO 0.04 K/mm3 (0.00-0.10); IMMATURE GRAN PERCENT AUTO 0 % (0-1); LYMPHOCYTES ABSOLUTE AUTO 1.69 K/mm3 (0.84-5.20); LYMPHOCYTES PERCENT AUTO 18 % (21-46); MONOCYTES ABSOLUTE AUTO 0.98 K/mm3 (0.16-1.47); MONOCYTES PERCENT AUTO 11 % (4-13); Mean Corpuscular HGB 31.8 pg (26.0-34.0); Mean Corpuscular Volume 94 fL (80-100); Mean Platelet Volume 9.6 fL (9.1-12.4); NEUTROPHILS ABSOLUTE AUTO 6.16 K/mm3 (1.96-9.15); NEUTROPHILS PERCENT AUTO 67 % (41-73); Platelet Count 153 K/mm3 (150-400); RDW Coefficient Variation 12.7 % (11.7-14.2); RDW Standard Deviation 43.8 fL (35.1-46.3); Red Blood Cell Count 2.86 M/mm3 (3.80-5.20); White Blood Cell Count 9.22 K/mm3 (4.00-11.30)
--- NOTE | 2022-03-05 05:28 | NUR ---
SHIFT SUMMARY PATIENT ALERT AND ORIENTED X4. OCCASIONALLY IMPULSIVE WITH DELUSIONAL THOUGHTS. PATIENT HAD NO COMPLAINTS OF PAIN OR SHORTNESS OF BREATH. NO ACUTE ISSUES NOTED OVERNIGHT. CALL LIGHT WITHIN REACH. REPORT GIVEN TO ONCOMING RN.
[2022-03-05 05:44] LABS: Albumin/Globulin Ratio 0.6 (0.8-1.8); Bilirubin, Total 0.6 mg/dL (0.1-1.0); Bun/Creatinine Ratio 12.9 (12.0-20.0); Calcium, Blood 7.8 mg/dL (8.5-10.1); Creatinine, Blood 1.24 mg/dL (0.40-1.00); Globulin, Blood 3.6 g/dL (2.2-4.0); Potassium, Blood 3.1 mmol/L (3.5-5.5); Total Protein, Blood 5.6 g/dL (6.4-8.2)
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
[2022-03-05 22:47] LABS: Vancomycin, Trough 19.3 ug/mL (5.0-10.0)
[2022-03-06 06:00] LABS: BASOPHILS ABSOLUTE AUTO 0.06 K/mm3 (0.00-0.23); BASOPHILS PERCENT AUTO 1 % (0-2); EOSINOPHILS ABSOLUTE AUTO 0.73 K/mm3 (0.00-0.68); EOSINOPHILS PERCENT AUTO 10 % (0-6); Hematocrit 27.9 % (33.0-51.0); Hemoglobin 9.6 g/dL (11.5-16.0); IMMATURE GRAN ABSOLUTE AUTO 0.02 K/mm3 (0.00-0.10); IMMATURE GRAN PERCENT AUTO 0 % (0-1); LYMPHOCYTES ABSOLUTE AUTO 1.84 K/mm3 (0.84-5.20); LYMPHOCYTES PERCENT AUTO 26 % (21-46); MONOCYTES PERCENT AUTO 9 % (4-13); Mean Corpuscular HGB 32.3 pg (26.0-34.0); Mean Corpuscular HGB Conc 34.4 g/dL (31.5-36.5); Mean Corpuscular Volume 94 fL (80-100); Mean Platelet Volume 9.8 fL (9.1-12.4); NEUTROPHILS ABSOLUTE AUTO 3.78 K/mm3 (1.96-9.15); NEUTROPHILS PERCENT AUTO 54 % (41-73); Platelet Count 188 K/mm3 (150-400); RDW Coefficient Variation 12.9 % (11.7-14.2); RDW Standard Deviation 44.3 fL (35.1-46.3); Red Blood Cell Count 2.97 M/mm3 (3.80-5.20); White Blood Cell Count 7.03 K/mm3 (4.00-11.30)
[2022-03-06 06:29] LABS: Albumin/Globulin Ratio 0.5 (0.8-1.8); Bilirubin, Total 0.3 mg/dL (0.1-1.0); Bun/Creatinine Ratio 13.8 (12.0-20.0); Calcium, Blood 8.2 mg/dL (8.5-10.1); Creatinine, Blood 1.3 mg/dL (0.40-1.00); Globulin, Blood 3.7 g/dL (2.2-4.0); Potassium, Blood 3.4 mmol/L (3.5-5.5); Total Protein, Blood 5.7 g/dL (6.4-8.2)
--- NOTE | 2022-03-06 06:29 | NUR ---
SHIFT SUMMARY PATIENT ALERT AND ORIENTED X4. ALTHOUGH IS IMPULSIVE AND FORGETFUL AT TIMES. SHE HAD NO COMPLAINTS OF PAIN OR SHORTNESS OF BREATH. HAD NO ACUTE ISSUES NOTED OVERNIGHT. BED IN LOWEST POSITION WITH WHEELS LOCKED AND ALARM ON. CALL LIGHT WITHIN REACH. REPORT GIVEN TO ONCOMING RN.
[2022-03-06 07:51] LABS: Free Thyroxine 1.16 ng/dL (0.70-1.60)
[2022-03-06 07:52] LABS: Triiodothyronine, Free 1.09 pg/mL (2.18-3.98)
[2022-03-06] MEDS ORDERED: Cephalexin250 MG/5 M PO (11:32)
[2022-03-06] MEDS ORDERED: SULTRIDS PO (11:38)
--- NOTE | 2022-03-06 15:15 | NUR ---
DISCHARGE SUMMARY: PT DISCHARGED TO HOME WITH MOM. PT EDUCATED ON MEDICATIONS AND DISCHARGE PLAN. PT VU. PT ASSISTED WITH PACKING UP BELONGINGS. BLISTER ON R STUMP CLEANSED AND DRESSING APPLIED. PT ASSISTED WITH GETTING DRESSED. MEDIPORT DEACCESSED AND PT ESCORTED TO POV VIA WC.
== END 2022-03-06 13:25 | disposition home health service (06) | DRG 872 ==
LOC: ER 17:07 → MEDS 23:46
PROVIDERS: Emergency Medicine; Family Medicine; Family Medicine Adult Medicine; ADMIT Internal Medicine
DX: A41.9 Sepsis, unspecified organism (principal); L03.116 Cellulitis of left lower limb; F17.210 Nicotine dependence, cigarettes, uncomplicated; Z91.040 Latex allergy status; Z79.899 Other long term (current) drug therapy; Z79.4 Long term (current) use of insulin; Z90.49 Acquired absence of other specified parts of digestive tract; Z90.710 Acquired absence of both cervix and uterus; Z89.521 Acquired absence of right knee; N18.2 Chronic kidney disease, stage 2 (mild); I12.9 Hypertensive chronic kidney disease with stage 1 through stage 4 chronic kidney disease, or unspecified chronic kidney disease; D63.1 Anemia in chronic kidney disease; E11.22 Type 2 diabetes mellitus with diabetic chronic kidney disease; E03.9 Hypothyroidism, unspecified; E11.40 Type 2 diabetes mellitus with diabetic neuropathy, unspecified; Z98.51 Tubal ligation status; B18.2 Chronic viral hepatitis C
CPT/HCPCS: 36415; 80053; 80202; 82947; 83605; 84439; 84443; 84481; 85025; 87040; 93971; 96361; 96374; 99285-25; A9270; J0295; J1642; J1650; J3370; J7030; J7050

== ENCOUNTER → 2022-03-04 | Outpatient (CLI) | payer OTHER ==
[~2022-03-04] MED LIST changes: +Cephalexin250 MG/5 M PO; -EUTHYROX125 MCG PO; +HYDRA25 PO; +LEVSOD112 PO; +LOSARTAN POTAS100 MG PO; +NYSTATIN15 GM TOP; +SULTRIDS PO
[2022-03-04 16:50] LABS: BASOPHILS ABSOLUTE AUTO 0.09 K/mm3 (0.00-0.23); BASOPHILS PERCENT AUTO 1 % (0-2); EOSINOPHILS ABSOLUTE AUTO 0.22 K/mm3 (0.00-0.68); EOSINOPHILS PERCENT AUTO 2 % (0-6); Hematocrit 29.8 % (33.0-51.0); Hemoglobin 10.4 g/dL (11.5-16.0); IMMATURE GRAN ABSOLUTE AUTO 0.06 K/mm3 (0.00-0.10); IMMATURE GRAN PERCENT AUTO 1 % (0-1); LYMPHOCYTES ABSOLUTE AUTO 1.48 K/mm3 (0.84-5.20); LYMPHOCYTES PERCENT AUTO 12 % (21-46); MONOCYTES ABSOLUTE AUTO 1.18 K/mm3 (0.16-1.47); MONOCYTES PERCENT AUTO 10 % (4-13); Mean Corpuscular HGB Conc 34.9 g/dL (31.5-36.5); Mean Corpuscular Volume 92 fL (80-100); Mean Platelet Volume 9.8 fL (9.1-12.4); NEUTROPHILS ABSOLUTE AUTO 9.12 K/mm3 (1.96-9.15); NEUTROPHILS PERCENT AUTO 75 % (41-73); Platelet Count 194 K/mm3 (150-400); RDW Coefficient Variation 12.9 % (11.7-14.2); RDW Standard Deviation 42.9 fL (35.1-46.3); Red Blood Cell Count 3.25 M/mm3 (3.80-5.20); White Blood Cell Count 12.15 K/mm3 (4.00-11.30)
[2022-03-04 16:59] LABS: Albumin, Blood 2.7 g/dL (3.4-5.0); Albumin/Globulin Ratio 0.6 (0.8-1.8); Bilirubin, Total 0.8 mg/dL (0.1-1.0); Bun/Creatinine Ratio 13.1 (12.0-20.0); Calcium, Blood 8.5 mg/dL (8.5-10.1); Creatinine, Blood 1.37 mg/dL (0.40-1.00); Globulin, Blood 4.2 g/dL (2.2-4.0); Potassium, Blood 3.5 mmol/L (3.5-5.5); Total Protein, Blood 6.9 g/dL (6.4-8.2)
== END ==
LOC: LAB SHORT 16:42
PROVIDERS: Physician Assistant
DX: A41.9 Sepsis, unspecified organism (principal)
CPT/HCPCS: 80053; 85025

== ENCOUNTER 2023-02-11 00:01 | Inpatient (IN) | payer OTHER ==
[2023-02-11] VITALS (46 sets, daily range): BP systolic 75–135; BP diastolic 49–86
[~2023-02-11] VITALS: Ht 160 cm; Wt 93.9 kg
[~2023-02-11 00:01] MED LIST changes: +Cephalexin250 MG/5 M PO; +HYDRA25 PO; +LOSARTAN POTAS100 MG PO; +NYSTATIN15 GM TOP; +SULTRIDS PO
[2023-02-11 01:59] LABS: BASOPHILS ABSOLUTE AUTO 0.11 K/mm3 (0.00-0.23); BASOPHILS PERCENT AUTO 1 % (0-2); EOSINOPHILS ABSOLUTE AUTO 0.13 K/mm3 (0.00-0.68); EOSINOPHILS PERCENT AUTO 1 % (0-6); Hemoglobin 10.8 g/dL (11.5-16.0); IMMATURE GRAN ABSOLUTE AUTO 0.14 K/mm3 (0.00-0.10); IMMATURE GRAN PERCENT AUTO 1 % (0-1); LYMPHOCYTES ABSOLUTE AUTO 1.48 K/mm3 (0.84-5.20); LYMPHOCYTES PERCENT AUTO 10 % (21-46); MONOCYTES ABSOLUTE AUTO 1.29 K/mm3 (0.16-1.47); MONOCYTES PERCENT AUTO 9 % (4-13); Mean Corpuscular HGB 31.4 pg (26.0-34.0); Mean Corpuscular HGB Conc 34.8 g/dL (31.5-36.5); Mean Corpuscular Volume 90 fL (80-100); Mean Platelet Volume 10.2 fL (9.1-12.4); NEUTROPHILS ABSOLUTE AUTO 11.64 K/mm3 (1.96-9.15); NEUTROPHILS PERCENT AUTO 79 % (41-73); Platelet Count 197 K/mm3 (150-400); RDW Coefficient Variation 13.2 % (11.7-14.2); RDW Standard Deviation 43.3 fL (35.1-46.3); Red Blood Cell Count 3.44 M/mm3 (3.80-5.20); White Blood Cell Count 14.79 K/mm3 (4.00-11.30)
[2023-02-11 02:07] LABS: Albumin, Blood 2.5 g/dL (3.4-5.0); Albumin/Globulin Ratio 0.6 (0.8-1.8); Bilirubin, Total 0.5 mg/dL (0.1-1.0); Bun/Creatinine Ratio 10.3 (12.0-20.0); Calcium, Blood 8.8 mg/dL (8.5-10.1); Creatinine, Blood 1.65 mg/dL (0.40-1.00); Globulin, Blood 4.1 g/dL (2.2-4.0); Potassium, Blood 3.1 mmol/L (3.5-5.5); Total Protein, Blood 6.6 g/dL (6.4-8.2)
--- NOTE | 2023-02-11 05:53 | NUR ---
REPORT RECIEVED FROM VENU WINN RN AND AWAITING PT T/F TO ROOM 301.
--- NOTE | 2023-02-11 07:29 | NUR ---
ATTEMPTED TO CALL AND AWAITING RETURN CALL RE: TRENDING DOWNWARD HYPOTENSION (NOW SBP 80'S-90'S, MAP 71). PT ONLY ROUSES BRIEFLY TO VOICE BEFORE BECOMING LETHARGIC AGAIN AND SHE C/O DIZZINESS W/MOVEMENT. 2L NS RX'D IN ER BUT ONLY 1L WAS RECIEVED. ATTEMPTED TO GIVE 2ND LITER BUT PHARMACIST INSTRUCTED TO CLARIFY INPATIENT IVF ORDERS. VIDEO PRODUCER (DOMENIC LUGO) AWARE OF FINDINGS. ICU VIDEO PRODUCER CAME TO FLOOR TO EVALUATE PT AND BELIEVES SHE'S APPROPRIEATE FOR HIGHER LEVEL OF CARE. REPORT PROVIDED TO DAY RN. CRYSTALO INFUSING VIA MEDIPORT AND KCL AND UNASYN TO BE RECIEVED WHEN ADDITIONAL IV ACCESS OBTAINED.
--- NOTE | 2023-02-11 07:32 | NUR ---
NOTES: CALLED DR. GROVES TO REPORT PATIENT CONDITION BP IS DROOPING DOWN AND VERY LETHARGIC. PER DR. GROVES SHE WILL COME OVER AND SEE PATIENT IN ROOM.
--- NOTE | 2023-02-11 07:53 | NUR ---
NOTES: PATIENT TRANSFERRED TO ICU ROOM 3. BEDSIDE REPORT GIVEN TO [facility].
--- NOTE | 2023-02-11 09:13 | NUR ---
PT ADMIT NOTE.... PT ARRIVED FROM THE MEDICAL FLOOR AT 0745. SHE IS SLEEPING BUT WAKES TO VERBAL STIMULI. WHILE AWAKE SHE IS A&Ox4 BUT FALLS ASLEEP VERY QUICKLY WITH NO STIMULATION. SHE IS IN SR IN THE 60'S BPs ARE SOFT WITH SBPs IN THE 80'S-90'S MAPS>65. SHE IS ON RA WITH O2 SATS>95% L/S CLEAR T/O. SHE WAS ADMITTED FOR SEPSIS, HER LLE IS RED, WARM AND PAINFUL TO THE TOUCH, PT HAS HX OF CELLULITIS. THE PT'S MOM JAVI IS AT THE BEDSIDE AND PROVIDES HEALTH HX. CALL LIGHT IN REACH WILL CONTINUE TO MONITOR.
[2023-02-11 14:13] LABS: Albumin, Blood 2.1 g/dL (3.4-5.0); Anion Gap 7 mmol/L (6-16); Blood Urea Nitrogen 20 mg/dL (8-24); Bun/Creatinine Ratio 10.3 (12.0-20.0); CO2, Blood 20 mmol/L (21-32); Calcium, Blood 7.8 mg/dL (8.5-10.1); Chloride, Blood 112 mmol/L (98-108); Creatinine, Blood 1.95 mg/dL (0.40-1.00); Glomerular Filtration Rate 30 (60-); Glucose, Blood 157 mg/dL (70-99); Phosphorus, Blood 3.3 mg/dL (2.5-4.9); Potassium, Blood 3.7 mmol/L (3.5-5.5); Sodium, Blood 139 mmol/L (136-145)
--- NOTE | 2023-02-11 18:28 | NUR ---
SHIFT SUMMARY.... NO ACUTE NEGATIVE CHANGES NOTED THIS SHIFT. THE PT'S BP HAS BEEN SOFT WITH SBPs IN THE 80'S-110'S MAPS >65. THE PT IS MORE AWAKE AND ABLE TO STAY AWAKE WITHOUT STIMULATION. SHE WAS UP TO THE BSC WITH SBA. PT WAS ABLE TO EAT DINNER WITHOUT FALLING BACK ASLEEP. CALL LIGHT IN REACH WILL CONTINUE TO MONITOR UNTIL REPORT IS GIVEN TO ONCOMING RN.
--- NOTE | 2023-02-11 19:00 | NUR ---
ASSUMED CARE CARE WAS ASSUMED OF PT AT 1900. REPORT GIVEN BY DORIE SPEAR. PT SLEEPING UPON ARRIVAL IN ROOM. NS TKO INFUSING VIA MEDIPORT. HR 60s. NSR REFLECTED ON CARDIAC MONITORING. PT ON RA, O2 SATS >95%. CALL LIGHT IN REACH.
[2023-02-12] VITALS: BP 118/79
[2023-02-12 04:03] VITALS: BP 147/99
[2023-02-12 04:37] LABS: BASOPHILS ABSOLUTE AUTO 0.05 K/mm3 (0.00-0.23); BASOPHILS PERCENT AUTO 1 % (0-2); EOSINOPHILS PERCENT AUTO 8 % (0-6); Hematocrit 29.8 % (33.0-51.0); Hemoglobin 10.1 g/dL (11.5-16.0); IMMATURE GRAN ABSOLUTE AUTO 0.03 K/mm3 (0.00-0.10); IMMATURE GRAN PERCENT AUTO 0 % (0-1); LYMPHOCYTES ABSOLUTE AUTO 1.28 K/mm3 (0.84-5.20); LYMPHOCYTES PERCENT AUTO 15 % (21-46); MONOCYTES ABSOLUTE AUTO 0.62 K/mm3 (0.16-1.47); MONOCYTES PERCENT AUTO 7 % (4-13); Mean Corpuscular HGB 31.5 pg (26.0-34.0); Mean Corpuscular HGB Conc 33.9 g/dL (31.5-36.5); Mean Corpuscular Volume 93 fL (80-100); Mean Platelet Volume 10.2 fL (9.1-12.4); NEUTROPHILS ABSOLUTE AUTO 5.82 K/mm3 (1.96-9.15); NEUTROPHILS PERCENT AUTO 68 % (41-73); Platelet Count 218 K/mm3 (150-400); RDW Coefficient Variation 13.6 % (11.7-14.2); RDW Standard Deviation 46.1 fL (35.1-46.3); Red Blood Cell Count 3.21 M/mm3 (3.80-5.20)
[2023-02-12 05:01] LABS: Albumin/Globulin Ratio 0.5 (0.8-1.8); Bilirubin, Total 0.2 mg/dL (0.1-1.0); Bun/Creatinine Ratio 12.5 (12.0-20.0); Calcium, Blood 7.9 mg/dL (8.5-10.1); Creatinine, Blood 1.76 mg/dL (0.40-1.00); Globulin, Blood 3.8 g/dL (2.2-4.0); Potassium, Blood 3.5 mmol/L (3.5-5.5); Total Protein, Blood 5.8 g/dL (6.4-8.2)
--- NOTE | 2023-02-12 06:02 | NUR ---
SHIFT SUMMARY CORTES REMAINS A/O X4 AND HAD NO ACUTE CHANGES THIS SHIFT. PT REMAINED ON ROOM AIR, O2 SATS >95%. CARDIAC MONITORING REFLECTING NSR, HR 50s-60s DEPENDING ON IF PT WAS SLEEPING OR NOT. PT WAS ABLE TO GET UP AND USE COMMODE WITH MINIMAL ASSISTANCE FROM THIS RN. NS TKO INFUSING THROUGHOUT SHIFT THROUGH MEDIPORT. ABX CURRENTLY INFUSING. PT HAS NO COMPLAINTS AT THIS TIME. WILL CONTINUE TO MONITOR UNTIL CARE IS TRANSITIONED TO DAY SHIFT.
[2023-02-12 08:28] VITALS: BP 134/78
--- NOTE | 2023-02-12 12:34 | NUR ---
REASSESSMENT PT HAS GONE BETWEEN SITTING UP IN BED WATCHING TV AND SLEEPING THROUGHOUT THE MORNING. HER R HAMMONDS IS PINK/RED STILL, HOT TO TOUCH. REDNESS OUTLINED. STRONG PERIPHERAL PULSES AND GOOD CAP REFILL. LUNGS REMAIN CLEAR, RA. PT HAS BEEN UP TO THE COMMODE, TRANSFERRING WITH JUST STANDBY ASSIST. CONTINUING TO MONITOR.
--- NOTE | 2023-02-12 14:01 | NUR ---
TRANSFER PT TRANSFERRED TO [facility] 306 VIA . REPORT GIVEN TO BEATRIS SHETH. ALL BELONGINGS MOVED UPSTAIRS WITH PT. PT TOLERATED TRANSFER WELL.
--- NOTE | 2023-02-12 14:19 | NUR ---
PATIENT TRANSFERRED FROM ICU. REPORT FROM HALEY DALTON RN. PATIENT TRANSFERRED VIA WHEEL CHAIR. PATIENT AO X 4 ON ARRIVAL TO UNIT.
[2023-02-12 16:32] VITALS: BP 125/79
--- NOTE | 2023-02-12 18:40 | NUR ---
SHIFT SUMMARY; PATIENT ARRIVED FROM ER AT 1800. REPORT FROM ARCADIO SPEAR. ALL QUESTIONS ADDRESSED. PATIENT APPEARS VERY CHILD LIKE. HAS MUCH DIFFICULTY KEEPING ON TRACK. SHE IS EASILY REDIRECTABLE BUT SPEAKS VERY FAST. 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 SHE LIVES WITH HER FATHER. SHE DEVELOPED AN ABCESS TOOTH ABOUT A MONTH AGO AND HAS NOT SOUGHT TREATMENT UNTIL TODAY. PER PATIENT SHE USES [facility] FOR HER MEDICAL NEEDS. SHE USES AN ONLINE SERVICE FOR HER ADHD MEDICATIONS. PATIENT HAS VERY POOR HYGIENE AND WILL PASS ON TO NOC SHIFT ABOUT POSSIBILITY OF GETTING HER INTO SHOWER AND A HOSPITAL GOWN SHE DREFUSES AT THIS TIME.
[2023-02-12 20:35] VITALS: BP 150/85
[2023-02-13 04:52] VITALS: BP 149/92
[2023-02-13 04:57] LABS: BASOPHILS ABSOLUTE AUTO 0.08 K/mm3 (0.00-0.23); BASOPHILS PERCENT AUTO 1 % (0-2); EOSINOPHILS ABSOLUTE AUTO 0.75 K/mm3 (0.00-0.68); EOSINOPHILS PERCENT AUTO 10 % (0-6); Hematocrit 29.7 % (33.0-51.0); Hemoglobin 9.9 g/dL (11.5-16.0); IMMATURE GRAN ABSOLUTE AUTO 0.03 K/mm3 (0.00-0.10); IMMATURE GRAN PERCENT AUTO 0 % (0-1); LYMPHOCYTES ABSOLUTE AUTO 1.94 K/mm3 (0.84-5.20); LYMPHOCYTES PERCENT AUTO 26 % (21-46); MONOCYTES ABSOLUTE AUTO 0.53 K/mm3 (0.16-1.47); MONOCYTES PERCENT AUTO 7 % (4-13); Mean Corpuscular HGB 31.2 pg (26.0-34.0); Mean Corpuscular HGB Conc 33.3 g/dL (31.5-36.5); Mean Corpuscular Volume 94 fL (80-100); Mean Platelet Volume 9.9 fL (9.1-12.4); NEUTROPHILS ABSOLUTE AUTO 4.01 K/mm3 (1.96-9.15); NEUTROPHILS PERCENT AUTO 55 % (41-73); Platelet Count 242 K/mm3 (150-400); RDW Coefficient Variation 13.5 % (11.7-14.2); RDW Standard Deviation 46.4 fL (35.1-46.3); Red Blood Cell Count 3.17 M/mm3 (3.80-5.20); White Blood Cell Count 7.34 K/mm3 (4.00-11.30)
[2023-02-13 05:19] LABS: Albumin/Globulin Ratio 0.5 (0.8-1.8); Bilirubin, Total 0.3 mg/dL (0.1-1.0); Creatinine, Blood 1.67 mg/dL (0.40-1.00); Globulin, Blood 4.1 g/dL (2.2-4.0); Potassium, Blood 3.5 mmol/L (3.5-5.5); Total Protein, Blood 6.1 g/dL (6.4-8.2); Vancomycin, Trough 17.1 ug/mL (5.0-10.0)
[2023-02-13 07:56] VITALS: BP 152/91
--- NOTE | 2023-02-13 08:00 | NUR ---
SHIFT SUMMARY PATIENT A/Ox4, PLEASANT, CHILDLIKE AFFECT. DENIES PAIN NOR DISCOMFORT AT TIME OF ASSESSMENT. LLE CONTINUES TO BE WARM TO TOUCH. CONTINUES ON IV Abx THERAPY FOR LLE CELLULITIS, TOLERATING WELL. RIGHT UPPER CHEST MEDIPORT IS ACCESSED, NS@TKO. NO ACUTE CHANGES NOTED OVERNIGHT. BED IN LOWEST POSITION, CALL LIGHT WITHIN REACH.
[2023-02-13] MEDS ORDERED: VISBIOME 112.51 EACH PO (11:40)
[2023-02-13] MEDS ORDERED: CEPH500 PO (11:40)
--- NOTE | 2023-02-13 13:07 | NUR ---
DISCHARGE: PT D/C @1200 VIA WHEELCHAIR WITH MOTHER. PT ABLE TO TRANSFER TO WHEELCHAIR AND AUTOMOBILE W/O COMPLICATIONS. [facility] CALLED DR. GUADARRAMA OFFICE TO MAKE FOLLOW-UP APPOINTMENT FOR Monday02/16/2023 @0930 AND PT TO SHOW UP @0920. PT AWARE OF APPOINTMENT AND IS AWARE SHE WILL NEED TO RESCHEDULE IF UNABLE TO MAKE APPT. PT AWARE OF NEED TO ASK PCP ABOUT NAROLEPSY MEDICATION. ABX INSTRUCTIONS PROVIDED TO PT. BA DEACCESSED W/O COMPLICATIONS W/HEPARIN PER EMAR. ALL BELONGINGS PACKED AND SENT WITH PT AND FAMILY. NO COMPLAINTS UPON DISCHARGE.
== END 2023-02-13 12:10 | disposition home or self-care (01) | DRG 872 ==
LOC: ER 00:01 → MEDS 00:02 → ICUE 00:02 → MEDS 00:02 → ICUE 06:16 → MEDS 06:21 → ICUE 07:44 → MEDS 02-12 13:52
PROVIDERS: Family Medicine; Student in an Organized Health Care Education/Training Program; ADMIT Internal Medicine
DX: A41.9 Sepsis, unspecified organism (principal); L03.116 Cellulitis of left lower limb; N17.9 Acute kidney failure, unspecified; R65.20 Severe sepsis without septic shock; D63.1 Anemia in chronic kidney disease; E87.6 Hypokalemia; I12.9 Hypertensive chronic kidney disease with stage 1 through stage 4 chronic kidney disease, or unspecified chronic kidney disease; N18.30 Chronic kidney disease, stage 3 unspecified; K21.9 Gastro-esophageal reflux disease without esophagitis; E11.65 Type 2 diabetes mellitus with hyperglycemia; E03.9 Hypothyroidism, unspecified; Z91.040 Latex allergy status; Z88.8 Allergy status to other drugs, medicaments and biological substances; Z91.018 Allergy to other foods; Z79.890 Hormone replacement therapy; Z79.4 Long term (current) use of insulin; Z86.19 Personal history of other infectious and parasitic diseases; Z86.004 Personal history of in-situ neoplasm of other and unspecified digestive organs; Z90.49 Acquired absence of other specified parts of digestive tract; Z98.890 Other specified postprocedural states; Z98.51 Tubal ligation status; Z89.421 Acquired absence of other right toe(s); Z89.511 Acquired absence of right leg below knee; Z87.891 Personal history of nicotine dependence; Z99.3 Dependence on wheelchair
CPT/HCPCS: 36415; 80053; 80069; 80202; 82947; 83605; 85025; 93005; 93010; 96365; 96375; 99284-25; A9270; J0295; J0696; J1642; J1650; J1815; J1885; J2765; J3370; J3480; J7030; J7050